=== PATIENT | female | born 1940 | race Two or more races ===

== ENCOUNTER 2023-06-12 14:19 | Outpatient (OUT) | payer MEDICARE, OTHER, SELFPAY ==
--- NOTE | 2023-06-12 14:22 | MM_ITS ---
Patient Name: MAIKEL ESTES MR#: [id number] : 1940 Exam Date: 06/12/2023 Ordering Doctor: DR NAILA MOSES M.D. RADIOLOGY REPORT PROCEDURE: MM TOMOSYNTHESIS SCREENING BI COMPARISON: MG MAMM SCREEN 3D CHANG CAD, 06/06/2022. MG MAMM SCREEN 3D CHANG CAD, 06/04/2021. MG MAMM SCREEN CHANG W CAD, 05/08/2020. MG MAMM CHANG SCRN W CAD DIG, 12/28/2012. INDICATIONS: Screening Calculator Name NCI Breast Cancer Risk Assessment Tool 5 Year Breast Cancer Risk 0.70% Lifetime Breast Cancer Risk 0.90% Personal Breast Cancer No Personal Ovarian Cancer No Treatments None Family Cancers None LOCATION: [facility] BREAST COMPOSITION: Heterogeneously dense,which may obscure small masses. FINDINGS: DIAGNOSTIC CATEGORY 1--NEGATIVE. RIGHT BREAST: No significant suspicious finding. No significant change has occurred. LEFT BREAST: No significant suspicious finding. No significant change has occurred. RECOMMENDATIONS: ROUTINE MAMMOGRAM AND CLINICAL EVALUATION IN 12 MONTHS. PLEASE NOTE: A NORMAL MAMMOGRAM DOES NOT EXCLUDE THE POSSIBILITY OF BREAST CANCER. A CLINICALLY SUSPICIOUS PALPABLE LUMP SHOULD BE BIOPSIED. Dictated by: Ritesh Salinas M.D. on 06/15/2023 at 08:07 Approved by: Ritesh Salinas M.D. on 06/15/2023 at 08:38
== END 2023-06-12 14:20 | disposition home or self-care (01) ==
LOC: MAMMO 14:19
PROVIDERS: PCP Family Medicine; Visit Provider Family Medicine
DX: Z12.31 Encounter for screening mammogram for malignant neoplasm of breast (principal)
CPT/HCPCS: 77063; 77067

== ENCOUNTER 2023-12-25 12:36 | Outpatient (OUT) | payer MEDICARE, OTHER, SELFPAY ==
--- NOTE | 2023-12-25 12:44 | XR_ITS ---
[address] [address] Patient Name: MAIKEL ESTES MRN: [id number] date: 1940 Sex: F Assigned Patient Location: [facility] Current Patient Location: [facility] Accession/Order Number: [id number] Exam Date: 12/25/2023 12:51 Report Date: 12/25/2023 13:12 At the request of: NANCY MONTEIRO Procedure: XR DEXA axial skeleton EXAMINATION: XR DEXA axial skeleton HISTORY: Screening COMPARISON: DEXA bone densitometry 06/29/2017 TECHNIQUE: Dual-energy X-ray absorptiometry (DXA) was performed. FINDINGS: SPINE ANALYSIS: Average bone mineral density is 1.126 g/cm2. T-score (standard deviation relative to young adult mean): -0.5 . +0.3% change since prior study. HIP ANALYSIS: Lowest bone mineral density is within the left femoral neck, 0.843 g/cm2. T-score (standard deviation relative to young adult mean): -1.4 . -0.9% change since prior study. XR/XR DEXA axial skeleton IMPRESSION: World [employer] Classification: Osteopenia - Moderate Fracture Risk FRAX: Electronically authenticated by: PIERRE GREY Date: 12/25/2023 13:12
--- OUTSIDE RECORDS SUMMARY | 2023-12-25 12:48 | XMS_ITS | CCD ---
Author Organization [facility] Care Team Providers Care Social Science Professor Name Role Phone Olga Hayes Primary Care Unavailable Rush Desai Attending Unavailable Giselle, Rush Admitting Unavailable [place], DR STEVEN Scruggs Admitting Unavailable ANTIOCH, DR OH Primary Care Unavailable [place], DR STEVEN Scruggs Attending Unavailable [place], DR STEVEN Scruggs Consulting Unavailable ANTIOCH, DR OH Attending Unavailable ANTIOCH, DR OH Consulting Unavailable ANTIOCH, DR OH Primary Care Unavailable ANTIOCH, DR OH Admitting Unavailable ANTIOCH, DR OH Attending Unavailable ANTIOCH, DR OH Primary Care Unavailable ANTIOCH, DR OH Admitting Unavailable [place], DR STEVEN Scruggs Consulting Unavailable ANTIOCH, DR [place] Consulting Unavailable ANTIOCH, DR OH Primary Care Unavailable [place], DR STEVEN Scruggs Admitting Unavailable [place], DR STEVEN Scruggs Attending Unavailable MAINE, DR STEVEN Scruggs Consulting Unavailable MATILDA, DR RITESH Goldstein Consulting Unavailable Roselyn Weathers Unavailable NAILA MOSES Attending Unavailable NAILA MOSES Attending Unavailable NANCY MONTEIRO Attending Unavailable NAILA MOSES Attending Unavailable NAILA MOSES Attending Unavailable Medications Current Medications Medication Drug Class(es) Dates Sig (Normalized) Sig (Original) doxycycline monohydrate 100 mg oral capsule (1 source) Tetracycline-class Drug Start: 08-09-2022 take 1 capsule by mouth every twelve hours Doxycycline Monohydrate 100 MG 1 capsule Orally every 12 hrs for 7 days Jul, Active lisinopril 40 mg oral tablet (1 source) Angiotensin Converting Enzyme Inhibitor take 1 tablet by mouth every twenty-four hours Lisinopril 40 MG 1 tablet By Mouth Daily for 90 day(s) Active Multi For Her 50+ - (1 source) Multi For Her 50 + - as directed Orally Daily Active mupirocin 0.02 mg/mg topical ointment (1 source) RNA Synthetase Inhibitor Antibacterial Start: 08-09-2022 Mupirocin 2 % 1 application with Qtip to affected area Externally 2 times a day for 7 days Jul, Active Problems Active Problems Problem Classification Problem Date Documented Date Episodic/Chronic Chronic kidney disease (1 source) Chronic kidney disease stage 3; Translations: [Chronic kidney disease, stage 3 (moderate)] Chronic Essential hypertension (4 sources) Essential (primary) hypertension; Translations: [ESSENTIAL PRIMARY HYPERTENSION] Onset: 2 Chronic Hypertension with complications and secondary hypertension (1 source) Hypertensive renal disease; Translations: [Hypertensive chronic kidney disease with stage 1 through stage 4 chronic kidney disease, or unspecified chronic kidney disease] Chronic Other circulatory disease (1 source) Elevated blood-pressure reading, without diagnosis of hypertension Episodic Other diseases of kidney and ureters (1 source) Secondary hyperparathyroidism; Translations: [Secondary hyperparathyroidism of renal origin] Chronic Other screening for suspected conditions (not mental disorders or infectious disease) (4 sources) Encounter for screening mammogram for malignant neoplasm of breast; Translations: [ENC SCR MAMMO MALIG NEOPLASM BREAST] Onset: 2 Episodic Skin and subcutaneous tissue infections (1 source) Cellulitis of other sites Episodic Past or Other Problems Problem Classification Problem Date Documented Da te Episodic/Chronic Varicose veins of lower extremity (4 sources) Varicose veins of bilateral lower extremities with pain; Translations: [VARICOSE VNS CHANG LOW EXTREM W/PAIN] Onset: 09-12-2021 Episodic Results Test Name Value Interpretation Reference Range Facil ity CBC AUTO DIFFon 07-17-2022 BASO # 0.0 103/ul Normal 0.0-0.1 [facility] Comment on above: Performed By: #### C BC #### [facility] [address] [address] [address] Kassie Cheng Basophils/100 WBC (Bld) 0.3 % Normal 0.2-2.0 [facility] Comment on above: Performed By: #### C BC #### [facility] [address] [address] [address] Kassie Cheng EO # 0.0 103/ul Normal 0.0-0.7 [facility] Comment on above: Performed By: #### C BC #### [facility] [address] [address] [address] Kassie Cheng Eosinophils/100 WBC (Bld) 0.7 % Critically low 0.9-7.0 [facility] Comment on above: Performed By: #### C BC #### [facility] [address] [place] [address] Dr. Kassie Cheng Erythrocyte distribution width (RBC) [Ratio] 13.9 % Normal 11.0-15.0 [facility] Comment on above: Performed By: #### C BC #### [facility] [address] [place] [address] Dr. Kassie Cheng Hematocrit (Bld) [Volume fraction] 40.6 % Normal 36.0-48.0 [facility] Comment on above: Performed By: #### C BC #### [facility] [address] [place] [address] Dr. Kassie Cheng Hemoglobin (Bld) [Mass/Vol] 13.2 g/dL Normal 12.0-16.0 [facility] Comment on above: Performed By: #### C BC #### [facility] [address] [place] [address] Dr. Kassie Cheng IG # 0.01 10e3/ul Normal 0.00-0.03 [facility] Comment on above: Performed By: #### C BC #### [facility] [address] [place] [address] Dr. Kassie Cheng IG % 0.2 % Normal 0.0-0.5 [facility] Comment on above: Performed By: #### C BC #### [facility] [address] [place] [address] Dr. Kassie Cheng LYMPH # 1.2 103/ul Normal 1.2-3.8 [facility] Comment on above: Performed By: #### C BC #### [facility] [address] [place] [address] Dr. Kassie Cheng Lymphocytes/100 WBC (Bld) 20.0 % Critically low 20.5-60.0 [facility] Comment on above: Performed By: #### C BC #### [facility] [address] [place] [address] Dr. Kassie Cheng MANUAL DIFF REQ NO Normal [facility] Comment on above: Performed By: #### C BC #### [facility] [address] [place] [address] Dr. Kassie Cheng MCH (RBC) [Entitic mass] 27.7 pg Normal 26.7-34.0 [facility] Comment on above: Performed By: #### C BC #### [facility] [address] [place] [address] Dr. Kassie Cheng MCHC (RBC) [Mass/Vol] 32.5 g/dL Normal 29.9-35.2 [facility] Comment on above: Performed By: #### C BC #### [facility] [address] [place] [address] Dr. Kassie Cheng MCV (RBC) [Entitic vol] 85.1 fL Normal 81.0-99.0 [facility] Comment on above: Performed By: #### C BC #### [facility] [address] [place] [address] Dr. Kassie Cheng MONO # 0.3 103/ul Normal 0.3-0.8 [facility] Comment on above: Performed By: #### C BC #### [facility] [address] [place] [address] Dr. Kassie Cheng Monocytes/100 WBC (Bld) 5.2 % Normal 1.7-12.0 [facility] Comment on above: Performed By: #### C BC #### [facility] [address] [place] [address] Dr. Kassie Cheng NEUT # 4.4 103/ul Normal 1.4-6.5 [facility] Comment on above: Performed By: #### C BC #### [facility] [address] [place] [address] Dr. Kassie Cheng Neutrophils/100 WBC (Bld) 73.6 % Normal 43.0-75.0 [facility] Comment on above: Performed By: #### C BC #### [facility] [address] [place] [address] Dr. Kassie Cheng Platelet mean volume (Bld) [Entitic vol] 10.4 fL Normal 9.5-13.5 [facility] Comment on above: Performed By: #### C BC #### [facility] [address] [address] [address] Kassie Cheng PLT 212 103/ul Normal 150-450 [facility] Comment on above: Performed By: #### C BC #### [facility] [address] [place] [address] Dr. Kassie Cheng RBC 4.77 106/ul Normal 4.20-5.40 [facility] Comment on above: Performed By: #### C BC #### [facility] [address] [place] [address] Dr. Kassie Cheng WBC 5.9 103/ul Normal 4.0-11.0 [facility] Comment on above: Performed By: #### C BC #### [facility] [address] [place] [address] Dr. Kassie Cheng PROF 14(COMP METB)on 022 Albumin [Mass/Vol] 4.0 g/dL Normal 3.4-5.0 [facility] Comment on above: Performed By: #### C MP, T4, TSH #### [facility] [address] [place] [address] Dr. Kassie Cheng Albumin/Globulin [Mass ratio] 1.0 {ratio} Normal [facility] Comment on above: Performed By: #### C MP, T4, TSH #### [facility] [address] [place] [address] Dr. Kassie Cheng ALP [Catalytic activity/Vol] 75 U/L Normal 46-116 [facility] Comment on above: Performed By: #### C MP, T4, TSH #### [facility] [address] [place] [address] Dr. Kassie Cheng ALT [Catalytic activity/Vol] 22 U/L Normal 14-59 [facility] Comment on above: Performed By: #### C MP, T4, TSH #### [facility] [address] [place] [address] Dr. Kassie Cheng Anion gap [Moles/Vol] 14.3 mmol/L Normal [facility] Comment on above: Performed By: #### C MP, T4, TSH #### [facility] [address] [address] [address] Kassie Cheng AST [Catalytic activity/Vol] 21 U/L Normal 15-37 [facility] Comment on above: Performed By: #### C MP, T4, TSH #### [facility] [address] [address] [address] Kassie Cheng Bilirubin [Mass/Vol] 0.5 mg/dL Normal 0.2-1.0 [facility] Comment on above: Performed By: #### C MP, T4, TSH #### [facility] [address] [address] [address] Kassie Cheng Calcium [Mass/Vol] 9.5 mg/dL Normal 8.5-10.1 [facility] Comment on above: Performed By: #### C MP, T4, TSH #### [facility] [address] [address] [address] Kassie Cheng Chloride [Moles/Vol] 100 mmol/L Normal 98-107 [facility] Comment on above: Performed By: #### C MP, T4, TSH #### [facility] [address] [address] [address] Kassie Cheng CO2 [Moles/Vol] 29.5 mmol/L Normal 21.0-32.0 [facility] Comment on above: Performed By: #### C MP, T4, TSH #### [facility] [address] [address] [address] Kassie Cheng Creatinine [Mass/Vol] 0.99 mg/dL Normal 0.55-1.02 [facility] Comment on above: Performed By: #### C MP, T4, TSH #### [facility] [address] [address] [address] Kassie Cheng EGFR-AF MOLDOVAN >60 Normal >=60 [facility] Comment on above: Performed By: #### C MP, T4, TSH #### [facility] [address] [address] [address] Kassie Cheng EGFR-NON AF MOLDOVAN 54 mL/min/1.73m2 Critically low >=60 [facility] Comment on above: Performed By: #### C MP, T4, TSH #### [facility] [address] [address] [address] Kassie Cheng Globulin (S) [Mass/Vol] 3.9 g/dL Normal [facility] Comment on above: Performed By: #### C MP, T4, TSH #### [facility] [address] [address] [address] Kassie Cheng Glucose [Mass/Vol] 101 mg/dL Normal 74-106 [facility] Comment on above: Performed By: #### C MP, T4, TSH #### [facility] [address] [place] [address] Dr. Kassie Cheng Potassium [Moles/Vol] 3.8 mmol/L Normal 3.5-5.1 [facility] Comment on above: Performed By: #### C MP, T4, TSH #### [facility] [address] [place] [address] Dr. Kassie Cheng Protein [Mass/Vol] 7.9 g/dL Normal 6.4-8.2 [facility] Comment on above: Performed By: #### C MP, T4, TSH #### [facility] [address] [place] [address] Dr. Kassie Cheng Sodium [Moles/Vol] 140 mmol/L Normal 136-145 [facility] Comment on above: Performed By: #### C MP, T4, TSH #### [facility] [address] [place] [address] Dr. Kassie Cheng Urea nitrogen [Mass/Vol] 17.0 mg/dL Normal 7.0-18.0 [facility] Comment on above: Performed By: #### C MP, T4, TSH #### [facility] [address] [place] [address] Dr. Kassie Cheng Urea nitrogen/Creatinine [Mass ratio] 17.2 mg/mg Normal [facility] Comment on above: Performed By: #### C MP, T4, TSH #### [facility] [address] [place] [address] Dr. Kassie Cheng T4on 07-17-2022 T4 [Mass/Vol] 9.40 ug/dL Normal 4.80-13.90 [facility] Comment on above: Performed By: #### C MP, T4, TSH #### [facility] [address], [place] [address] Dr. Kassie Cheng TSHon 07-17-2022 TSH 1.588 uIU/mL Normal 0.358-3.740 [facility] Comment on above: Performed By: #### C MP, T4, TSH #### [facility] [address], [place] [address] Dr. Kassie Cheng MG MAMM SCREEN 3D CHANG CADon 06-06-2022 MG MAMM SCREEN 3D CHANG CAD Patient: MAIKEL ESTES Exam Date: 06/06/2022 : 1940 Gender:F Ordering : DR ADRIANO CORONA D.O. Admission #: [id number] Family : Order #: [id number] CLICK HERE TO VIEW EXAM RADIOLOGY REPORT PROCEDURE: MAMMOGRAM SCREENING 3D BILATERAL CAD COMPARISON: MG MAMM SCREEN 3D CHANG CAD, 06/04/2021. MG MAMM SCREEN CHANG W CAD, 05/08/2020. INDICATIONS: Screening mammography Calculator Name NCI Breast Cancer Risk Assessment Tool 5 Year Breast Cancer Risk 0.70% Lifetime Breast Cancer Risk 1.00% Personal Breast Cancer No Personal Ovarian Cancer No Treatments None Family Cancers None LOCATION: [facility] BREAST COMPOSITION: Heterogeneously dense,which may obscure small masses. FINDINGS: DIAGNOSTIC CATEGORY 1--NEGATIVE. NO CHANGE FROM COMPARISON ASSESSMENT. Scattered benign-appearing calcifications are present. Scattered benign-appearing lymph nodes are present. RIGHT BREAST: No significant suspicious finding. LEFT BREAST: No significant suspicious finding. RECOMMENDATIONS: ROUTINE MAMMOGRAM AND CLINICAL EVALUATION IN 12 MONTHS. PLEASE NOTE: A NORMAL MAMMOGRAM DOES NOT EXCLUDE THE POSSIBILITY OF BREAST CANCER. A CLINICALLY SUSPICIOUS PALPABLE LUMP SHOULD BE BIOPSIED. Dictated by: Steven Grove MD on 06/06/2022 at 13:55 Approved by: Steven Grove MD on 06/06/2022 at 13:56 Normal [facility] VC COMP CONSULTATIONon 09-12 VC COMP CONSULTATION Patient: MAIKEL ESTES Exam Date: 09/12/2021 : 1940 Gender:F Ordering : DR STEVEN GROVE M.D. Admission #: [id number] Family : Order #: [id number] CLICK HERE TO VIEW EXAM RADIOLOGY REPORT PROCEDURE: VC VEIN CENTER CONSULTATION VEIN CENTER - OFFICE VISIT INITIAL COMPARISON: None. PROGRESS NOTES: [age] year old female who presents with a several months history of pain lateral and just cephalad to right knee. Pain is described as throbbing and started after falling and striking knee on edge of cement steps. The patient denies any signs and symptoms to suggest arterial ischemia. The patient describes a family history heart disease, diabetes, varicose veins. The patient has drinking and smoking history of : None. Patient has a past medical history significant for prior ablation/treatment of varicose veins. The patient denies a history of deep venous thrombus or pulmonary embolus. See separate history and physical for medication list. Prior treatment for varicose or spider veins. Current use of compression stockings. After review of nurse notes, history and physical exam I discussed at length the pathophysiology of venous hypertension and possible treatments, therapies and strategies available. We discussed at length the importance of elevating the lower extremities above the level of the heart, increased physical activity and compression stocking use. Ultrasound venous reflux study performed today was discussed at length with the patient. The report demonstrates scattered areas of mild-moderate reflux without abnormal vein dilation.. PHYSICAL EXAM: The right leg demonstrates a few small varicosities, no significant spider veins, no ulceration, no edema, no skin discoloration. The left leg demonstrates a few small varicosities, no spider veins, no ulceration, no edema, no skin discoloration. Both thighs, legs and feet were symmetrically warm to the touch. Good posterior tibial and dorsalis pedis pulses were present bilaterally. IMPRESSION: 1. No significant or treatable venous insufficiency 2. CEAP: C0, En, An, Pn PLAN: 1. Continued use of compression stockings 2. Follow-up with primary care provider possible nerve injury or bone bruising. Nurse notes, history and physical were reviewed and confirmed, see attached forms. The nurse was present throughout the physical exam and consultation Dictated by: Ritesh Salinas M.D. on 09/12/2021 at 10:58 Approved by: Ritesh Salinas M.D. on 09/12/2021 at 11:05 Normal [facility] [place] [facility] VC VENOUS REFLUX CHANG LMTon 0 09-12-2021 VC VENOUS REFLUX CHANG LMT Patient: MAIKEL ESTES Exam Date: 09/12/2021 : 1940 Gender:F Ordering : DR STEVEN GROVE M.D. Admission #: [id number] Family : Order #: [id number] CLICK HERE TO VIEW EXAM RADIOLOGY REPORT PROCEDURE: VEIN CENTER ULTRASOUND VENOUS REFLUX BILATERAL LIMTED COMPARISON: None. INDICATIONS: Pain co-occurrent and due to varicose veins of bilateral legs I83.813 TECHNIQUE: Duplex imaging of the lower extremity to assess the deep and superficial venous system for the presence of deep or superficial venous incompetence and to document the location and severity of disease. The study includes evaluation of the great saphenous vein (GSV), anterior accessory saphenous vein (AASV) and small saphenous vein (SSV). Patient scanned in reverse Trendelenburg and standing. FINDINGS: RIGHT LOWER EXTREMITY: Saphenofemoral Junction Reflux: Yes 8.6mm 6.4 sec GSV: Diam (mm) Reflux/ Time (sec) Proximal Thigh 4.5 Yes 3.3 Mid Thigh Distal Thigh 3.8 Yes 1.7 Prox Calf 1.9 Yes 1.3 Mid Calf 3.1 No Saphenopopliteal Junction Reflux: 4.0mm No SSV: Proximal Calf 2.5 No Mid Calf 1.5 No AASV: Proximal Thigh 4.0 Yes 0.6 Mid Thigh 2.0 No Distal Thigh Thrombi: None. Compressibility: Normal. Flow: Normal. Preforator: None. Tech Note: Incompetent varicose vein medial knee off of distal GSV measures 2.3 mm with 4.4 seconds of reflux. Lateral knee varicose vein measures 2.2 mm with 0.3 secoonds of reflux. LEFT LOWER EXTREMITY: Saphenofemoral Junction Reflux: Yes 7.6 mm 1.0 sec GSV: Diam (mm) Reflux/Time (sec) Proximal Thigh 3.7 Yes 0.2 Mid Thigh 2.6 Yes 0.2 Distal Thigh 1.5 No Prox Calf 2.3 No Mid Calf 2.9 No Saphenopopliteal Junction Relux: 2.4 mm No SSV: Proximal Calf 2.7 No Mid Calf 1.7 No AASV: Not present Proximal Thigh Mid Thigh Distal Thigh Thrombi: None. Compressibility: Normal. Flow: Normal. Proposition Player: Proposition Player distal calf measures 1.9 mm with 0.4 seconds of reflux. Tech Note: Fluid collection medial popliteal fossa measures 4.2 x 2.2 x 1.3 cm. Mild deep venous reflux in iliac vein and femoral vein. Dilated epigastric vein measures 4.3 mm with 1.8 seconds of reflux. Incompetent varicose vein anterior mid lower leg measures 1.4 mm with 1.6 seconds reflux. CONCLUSION: 1. Scattered areas of mild-moderate reflux without significant vessel dilation bilaterally. 2. Left Gamboa cyst. Dictated by: Ritesh Salinas M.D. on 09/12/2021 at 09:20 Approved by: Ritesh Salinas M.D. on 09/12/2021 at 10:57 Normal [facility] Dipstick and Microscopicon 0 09-28-2018 Appearance Nom (U) Clear Normal Clear [facility] Comment on above: Order Comment: DR. Stephan MORRISON ADD MICROSCOPIC TO UA Name Collection Type: Clean-Voided Midstream Performed By: #### P ROCRERAT, PTH, [id number], URIC, MG, RENAL, CBCNO, ADDONUAPLUS #### [facility] [address] Bacteria LM.HPF #/area (Urine sed) None Seen Normal None Seen [facility] Comment on above: Order Comment: DR. Stephan MORRISON ADD MICROSCOPIC TO UA Name Collection Type: Clean-Voided Midstream Performed By: #### P ROCRERAT, PTH, [id number], URIC, MG, RENAL, CBCNO, ADDONUAPLUS #### [facility] [address] [id number] [place] Bilirubin,Urine Negative Normal Negative [facility] Comment on above: Order Comment: DR. Stephan MORRISON ADD MICROSCOPIC TO UA Name Collection Type: Clean-Voided Midstream Performed By: #### P ROCRERAT, PTH, [id number], URIC, MG, RENAL, CBCNO, ADDONUAPLUS #### [facility] [address] [id number] [place] Color Nom (U) Yellow Normal Yellow [facility] Comment on above: Order Comment: DR. Stephan MORRISON ADD MICROSCOPIC TO UA Name Collection Type: Clean-Voided Midstream Performed By: #### P ROCRERAT, PTH, [id number], URIC, MG, RENAL, CBCNO, ADDONUAPLUS #### [facility] [address] [place] [address] Glucose Ql (U) Normal Normal Normal [facility] Comment on above: Order Comment: DR. Stephan MORRISON ADD MICROSCOPIC TO UA Name Collection Type: Clean-Voided Midstream Performed By: #### P ROCRERAT, PTH, [id number], URIC, MG, RENAL, CBCNO, ADDONUAPLUS #### [address] Hyaline Casts,Urine 0-8 Normal 0-[address] [facility] Comment on above: Order Comment: DR. Stephan MORRISON ADD MICROSCOPIC TO UA Name Collection Type: Clean-Voided Midstream Result Comment: PERF ORMED BY: [place] [address] PATHOLOGIST MOLECULAR BIOLOGY PROFESSOR ENRRIQUE HARVEY M.D. Performed By: #### P ROCRERAT, PTH, [id number], URIC, MG, RENAL, CBCNO, ADDONUAPLUS #### [address] Ketones Ql (U) Negative Normal Negative [facility] Comment on above: Order Comment: DR. Stephan MORRISON ADD MICROSCOPIC TO UA Name Collection Type: Clean-Voided Midstream Performed By: #### P ROCRERAT, PTH, [id number], URIC, MG, RENAL, CBCNO, ADDONUAPLUS #### [facility] [address] [place] [address] Leukocyte esterase Test strip Ql (U) 2+ High Negative [facility] Comment on above: Order Comment: DR. Stephan MORRISON ADD MICROSCOPIC TO UA Name Collection Type: Clean-Voided Midstream Performed By: #### P ROCRERAT, PTH, [id number], URIC, MG, RENAL, CBCNO, ADDONUAPLUS #### [address] Nitrite,Urine Negative Normal Negative [facility] Comment on above: Order Comment: DR. Stephan MORRISON ADD MICROSCOPIC TO UA Name Collection Type: Clean-Voided Midstream Performed By: #### P ROCRERAT, PTH, [id number], URIC, MG, RENAL, CBCNO, ADDONUAPLUS #### [address] Occult Blood,Urine Negative Normal Negative [facility] Comment on above: Order Comment: DR. Stephan MORRISON ADD MICROSCOPIC TO UA Name Collection Type: Clean-Voided Midstream Performed By: #### P ROCRERAT, PTH, [id number], URIC, MG, RENAL, CBCNO, ADDONUAPLUS #### [address] pH (U) 5.5 [pH] Normal 5.0-9.0 [facility] Comment on above: Order Comment: DR. Stephan MORRISON ADD MICROSCOPIC TO UA Name Collection Type: Clean-Voided Midstream Performed By: #### P ROCRERAT, PTH, [id number], URIC, MG, RENAL, CBCNO, ADDONUAPLUS #### [address] Protein mass conc (U) Negative Normal Negative [facility] Comment on above: Order Comment: DR. Stephan MORRISON ADD MICROSCOPIC TO UA Name Collection Type: Clean-Voided Midstream Performed By: #### P ROCRERAT, PTH, [id number], URIC, MG, RENAL, CBCNO, ADDONUAPLUS #### [address] RBC LM.HPF #/area (Urine sed) 1-2 Normal 0-4 [facility] Comment on above: Order Comment: DR. Stephan MORRISON ADD MICROSCOPIC TO UA Name Collection Type: Clean-Voided Midstream Performed By: #### P ROCRERAT, PTH, [id number], URIC, MG, RENAL, CBCNO, ADDONUAPLUS #### [address] Specificy [place],Urine 1.014 Normal 1.001-1.030 [facility] Comment on above: Order Comment: DR. Stephan MORRISON ADD MICROSCOPIC TO UA Name Collection Type: Clean-Voided Midstream Performed By: #### P ROCRERAT, PTH, [id number], URIC, MG, RENAL, CBCNO, ADDONUAPLUS #### [address] Squamous Epithelial Cell,Urine 1-2 Normal 0-2 [facility] Comment on above: Order Comment: DR. Stephan MORRISON ADD MICROSCOPIC TO UA Name Collection Type: Clean-Voided Midstream Performed By: #### P ROCRERAT, PTH, [id number], URIC, MG, RENAL, CBCNO, ADDONUAPLUS #### [address] Urobilinogen,Urine Normal Normal Normal [facility] Comment on above: Order Comment: DR. Stephan MORRISON ADD MICROSCOPIC TO UA Name Collection Type: Clean-Voided Midstream Performed By: #### P ROCRERAT, PTH, [id number], URIC, MG, RENAL, CBCNO, ADDONUAPLUS #### [address] WBC LM.HPF #/area (Urine sed) 1-2 Normal 0-4 [facility] Comment on above: Order Comment: DR. Stephan MORRISON ADD MICROSCOPIC TO UA Name Collection Type: Clean-Voided Midstream Performed By: #### P ROCRERAT, PTH, [id number], URIC, MG, RENAL, CBCNO, ADDONUAPLUS #### [address] Hemogram CBC Without Diffon 09-28-2018 Erythrocyte distribution width Ratio (RBC) 14.0 % Normal 11.9-15.3 [facility] Comment on above: Order Comment: DR. Stephan MORRISON ADD MICROSCOPIC TO UA Performed By: #### P ROCRERAT, PTH, [id number], URIC, MG, RENAL, CBCNO, ADDONUAPLUS #### [address] Hematocrit Volume Fraction (Bld) 40.8 % Normal 34.0-46.4 [facility] Comment on above: Order Comment: DR. Stephan MORRISON ADD MICROSCOPIC TO UA Performed By: #### P ROCRERAT, PTH, [id number], URIC, MG, RENAL, CBCNO, ADDONUAPLUS #### [address] Hemoglobin mass conc (Bld) 13.5 g/dL Normal 11.8-15.4 [facility] Comment on above: Order Comment: DR. Stephan MORRISON ADD MICROSCOPIC TO UA Performed By: #### P ROCRERAT, PTH, [id number], URIC, MG, RENAL, CBCNO, ADDONUAPLUS #### [address] MCH Entitic mass (RBC) 33.2 g/dL Normal 32.0-35.0 [facility] Comment on above: Order Comment: DR. Stephan MORRISON ADD MICROSCOPIC TO UA Performed By: #### P ROCRERAT, PTH, [id number], URIC, MG, RENAL, CBCNO, ADDONUAPLUS #### [address] MCH Entitic mass (RBC) 28.0 pg Normal 24.7-34.3 [facility] Comment on above: Order Comment: DR. Stephan MORRISON ADD MICROSCOPIC TO UA Performed By: #### P ROCRERAT, PTH, [id number], URIC, MG, RENAL, CBCNO, ADDONUAPLUS #### [address] MCV Entitic volume (RBC) 84.2 fL Normal 80-100 [facility] Comment on above: Order Comment: DR. Stephan MORRISON ADD MICROSCOPIC TO UA Performed By: #### P ROCRERAT, PTH, [id number], URIC, MG, RENAL, CBCNO, ADDONUAPLUS #### [address] Platelet mean volume Entitic volume (Bld) 9.6 fL Normal 6.3-10.7 [facility] Comment on above: Order Comment: DR. Stephan MORRISON ADD MICROSCOPIC TO UA Result Comment: PERF ORMED BY: [place] [address] PATHOLOGIST MOLECULAR BIOLOGY PROFESSOR ENRRIQUE HARVEY M.D. Performed By: #### P ROCRERAT, PTH, [id number], URIC, MG, RENAL, CBCNO, ADDONUAPLUS #### [facility] [address] [place] [address] Platelets #/vol (Bld) 224 10*3/uL Normal 150-450 [facility] Comment on above: Order Comment: DR. Stephan MORRISON ADD MICROSCOPIC TO UA Performed By: #### P ROCRERAT, PTH, [id number], URIC, MG, RENAL, CBCNO, ADDONUAPLUS #### [address] RBC #/vol (Bld) 4.84 10*6/uL Normal 3.60-5.00 [facility] Comment on above: Order Comment: DR. Stephan MORRISON ADD MICROSCOPIC TO UA Performed By: #### P ROCRERAT, PTH, [id number], URIC, MG, RENAL, CBCNO, ADDONUAPLUS #### [facility] [address] [place] [address] WBC #/vol (Bld) 4.3 10*3/uL Normal 3.8-11.6 [facility] Comment on above: Order Comment: DR. Stephan MORRISON ADD MICROSCOPIC TO UA Performed By: #### P ROCRERAT, PTH, [id number], URIC, MG, RENAL, CBCNO, ADDONUAPLUS #### [address] Magnesiumon 09-28-2018 Magnesium mass conc 1.8 mg/dL Normal 1.6-2.[address] [facility] Comment on above: Order Comment: DR. Stephan MORRISON ADD MICROSCOPIC TO UA Performed By: #### P ROCRERAT, PTH, [id number], URIC, MG, RENAL, CBCNO, ADDONUAPLUS #### [address] [place] [address] [place] Parathyroid Hormone [place] 09-28-2018 Parathyroid Hormone Intact 44.2 pg/mL Normal 12-88 [facility] Comment on above: Order Comment: DR. Stephan MORRISON ADD MICROSCOPIC TO UA Result Comment: PERF ORMED BY: [place] [address] PATHOLOGIST MOLECULAR BIOLOGY PROFESSOR ENRRIQUE HARVEY M.D. Performed By: #### P ROCRERAT, PTH, [id number], URIC, MG, RENAL, CBCNO, ADDONUAPLUS #### [address] Protein Creat Ratio Ur Rando mon 09-28-2018 Creatinine, Urine (Random) 159.8 mg/dL Normal [facility] Comment on above: Order Comment: DR. Stephan MORRISON ADD MICROSCOPIC TO UA Result Comment: No r eference range established Performed By: #### P ROCRERAT, PTH, [id number], URIC, MG, RENAL, CBCNO, ADDONUAPLUS #### [address] Protein mass conc (U) mg/dL Normal 0-9 [facility] Comment on above: Order Comment: DR. Stephan MORRISON ADD MICROSCOPIC TO UA Performed By: #### P ROCRERAT, PTH, [id number], URIC, MG, RENAL, CBCNO, ADDONUAPLUS #### [address] Urine Protein/Creatinine Ratio Test not performed Normal 0-200 [facility] Comment on above: Order Comment: DR. Stephan MORRISON ADD MICROSCOPIC TO UA Result Comment: PERF ORMED BY: [place] [address] PATHOLOGIST MOLECULAR BIOLOGY PROFESSOR ENRRIQUE HARVEY M.D. Performed By: #### P ROCRERAT, PTH, [id number], URIC, MG, RENAL, CBCNO, ADDONUAPLUS #### [address] Renal Function Panelon 09-28 Albumin mass conc 3.8 g/dL Normal 3.2-5.5 [facility] Comment on above: Order Comment: DR. Stephan MORRISON ADD MICROSCOPIC TO UA Performed By: #### P ROCRERAT, PTH, [id number], URIC, MG, RENAL, CBCNO, ADDONUAPLUS #### [facility] [address] Calcium mass conc 9.3 mg/dL Normal 8.2-10.2 [facility] Comment on above: Order Comment: DR. Stephan MORRISON ADD MICROSCOPIC TO UA Performed By: #### P ROCRERAT, PTH, [id number], URIC, MG, RENAL, CBCNO, ADDONUAPLUS #### [facility] [address] Chloride molar conc 104 mmol/L Normal 95-[address] [facility] Comment on above: Order Comment: DR. Stephan MORRISON ADD MICROSCOPIC TO UA Performed By: #### P ROCRERAT, PTH, [id number], URIC, MG, RENAL, CBCNO, ADDONUAPLUS #### [facility] [address] CO2 molar conc 26.6 mmol/L Normal 22.0-30.0 [facility] Comment on above: Order Comment: DR. Stephan MORRISON ADD MICROSCOPIC TO UA Performed By: #### P ROCRERAT, PTH, [id number], URIC, MG, RENAL, CBCNO, ADDONUAPLUS #### [facility] [address] Creatinine mass conc 0.95 mg/dL Normal 0.44-1.03 [facility] Comment on above: Order Comment: DR. Stephan MORRISON ADD MICROSCOPIC TO UA Performed By: #### P ROCRERAT, PTH, [id number], URIC, MG, RENAL, CBCNO, ADDONUAPLUS #### [facility] [address] Estimated GFR ( Zainab > 60 Normal [facility] Comment on above: Order Comment: DR. Stephan MORRISON ADD MICROSCOPIC TO UA Result Comment: GFR estimated reference range: According to KDOQI guidelines, <60 ml/min/1.73m2 is sufficient to diagnose a patient with chronic kidney disease. Performed By: #### P ROCRERAT, PTH, [id number], URIC, MG, RENAL, CBCNO, ADDONUAPLUS #### [facility] [address] Estimated GFR (Non- Am 57 Normal [facility] Comment on above: Order Comment: DR. Stephan MORRISON ADD MICROSCOPIC TO UA Performed By: #### P ROCRERAT, PTH, [id number], URIC, MG, RENAL, CBCNO, ADDONUAPLUS #### [facility] [address] Glucose mass conc 95 mg/dL Normal 70-100 [facility] Comment on above: Order Comment: DR. Stephan MORRISON ADD MICROSCOPIC TO UA Result Comment: [facility] Glucose Reference Range is dependent on time and content of last meal. Glucose of more than 200 mg/dL in a nonstressed, ambulatory subject supports the diagnosis of Diabetes Mellitus. ADA recommended reference range Performed By: #### P ROCRERAT, PTH, [id number], URIC, MG, RENAL, CBCNO, ADDONUAPLUS #### [facility] [address] Phosphate mass conc 3.9 mg/dL Normal 2.5-4.[address] [facility] Comment on above: Order Comment: DR. Stephan MORRISON ADD MICROSCOPIC TO UA Performed By: #### P ROCRERAT, PTH, [id number], URIC, MG, RENAL, CBCNO, ADDONUAPLUS #### [facility] [address] Potassium molar conc 3.5 mmol/L Normal 3.5-5.1 [facility] Comment on above: Order Comment: DR. Stephan MORRISON ADD MICROSCOPIC TO UA Performed By: #### P ROCRERAT, PTH, [id number], URIC, MG, RENAL, CBCNO, ADDONUAPLUS #### [facility] [address] Sodium molar conc 137 mmol/L Normal 136-146 [facility] Comment on above: Order Comment: DR. Stephan MORRISON ADD MICROSCOPIC TO UA Performed By: #### P ROCRERAT, PTH, [id number], URIC, MG, RENAL, CBCNO, ADDONUAPLUS #### [facility] [address] Urea nitrogen mass conc 14 mg/dL Normal 9-23 [facility] Comment on above: Order Comment: DR. Stephan MORRISON ADD MICROSCOPIC TO UA Performed By: #### P ROCRERAT, PTH, [id number], URIC, MG, RENAL, CBCNO, ADDONUAPLUS #### [facility] [address] [place] [id number] [facility] [[email or web address]] Uric Acidon 09-28-2018 Urate mass conc 6.0 mg/dL Normal 2.6-7.2 [facility] Comment on above: Order Comment: DR. Stephan MORRISON ADD MICROSCOPIC TO UA Performed By: #### P ROCRERAT, PTH, [id number], URIC, MG, RENAL, CBCNO, ADDONUAPLUS #### [facility] [address] [place] [address] Vitamin D 25 Hydroxy Totalon 09-28-2018 Vitamin D 25 Hydroxy Total 30.1 ng/mL Normal 30-100 [facility] Comment on above: Order Comment: DR. Stephan MORRISON ADD MICROSCOPIC TO UA Result Comment: SHILPA MIN D STATUS 25(OH)VITAMIN D RANGE (ng/mL) Deficient <20 Insufficient 20 to <30 Sufficient 30 to 100 Reference: Jaimie MF,Jurgen NC, Lamonte BAPTISTE, et al. Evaluation,treatment, and prevention of vitamin D deficiency; an Endocrine Society clinical practice guideline. JCEM. 2010; 96(7):1911-30. Performed By: #### P ROCRERAT, PTH, [id number], URIC, MG, RENAL, CBCNO, ADDONUAPLUS #### [facility] [address] Vital Signs Date Time Vital Sign Value Performing Clinician Facility 08-09-2022 14:00-0500 Body height 149.86 cm Roselyn Weathers Other [facility] Other 08-09-2022 14:00-0500 Body mass index (BMI) [Ratio] 24.84 kg/m2 Roselyn Weathers Other [facility] Other 08-09-2022 14:00-0500 Body temperature 98.9 [degF] Roselyn Weathers Other [facility] Other 08-09-2022 14:00-0500 Body weight 55.79 kg Roselyn Weathers Other [facility] Other 08-09-2022 14:00-0500 Diastolic blood pressure 93 mm[Hg] Roselyn Weathers Other [facility] Other 08-09-2022 14:00-0500 Respiratory rate 18 /min Roselyn Weathers Other [facility] Other 08-09-2022 14:00-0500 SaO2% (BldA) [Mass fraction] 98 % Roselyn Weathers Other [facility] Other 08-09-2022 14:00-0500 Systolic blood pressure 191 mm[Hg] Roselyn Weathers Other [facility] Other Encounters Encounter Date Encounter Type Care Provider Facility Start: 12-14-2023 End: 12-14-2023 ambulatory RUGEN M JOSUÉ Not Available Start: 11-30-2023 End: 11-30-2023 ambulatory RUGEN M JOSUÉ Not Available Start: 11-12-2023 End: 11-12-2023 ambulatory RUGEN M JOSUÉ Not Available Start: 08-03-2023 End: 08-03-2023 ambulatory RUGEN M JOSUÉ Not Available Start: 07-16-2023 End: 07-16-2023 ambulatory NANCY MONTEIRO Not Available Start: 08-09-2022 End: 08-09-2022 ambulatory Roselyn Sarahy Other [place] [facility] Other Start: 08-09-2022 Office outpatient ne w 30 minutes Roselyn Sarahy [facility] Start: 07-17-2022 End: 07-18-[address] ADRIANO CORONA Facility:[facility] Start: 06-06-2022 End: 06-07-[address] ADRIANO CORONA Facility:[facility] Start: 09-12-2021 End: 09-13-[address] ADRIANO CORONA Facility:[facility] Start: 09-05-2021 End: 09-06-[address] STEVEN GROVE Facility:[facility] Start: 09-28-2018 End: 09-28-2018 Patient encounter procedure Olga Hayes Facility:[facility] Payers Date Payer Category Payer Self-pay 2018 Unknown [id number] 1959 Medicare [id number] 1959 Unknown [id number] 1940 Unknown [id number] 2.16.84 [id number] 1940 Unknown [id number] 2.16.84 [id number] 1940 Unknown [id number] 2.16.84 [id number] 1940 Unknown [id number] 2.16.84 [id number] 1940 Unknown [id number] 2.16.84 [id number] 1940 Unknown [id number] 2.16.84 [id number] 1940 Unknown [id number] 2.16.84 [id number] 1940 Unknown [id number] 2.16.84 [id number] 1940 Unknown [id number] 2.16.840 .[id number] Unknown [id number] 2.16.840 .[id number] Social History Date Type Detail Facility Sex Assigned At [facility] Other Evaluation note 08-09-2022 Note Date & Type Note Facility 08-09-2022 Evaluation note Encounter Date Diagnosis Assessment Notes Jul, Cellulitis of other specified site (ICD-10 - L03.818) Use medications as directed. CMay use gently cleanser to area between daily application as instructed. Follow up with primary care provider if no improvement of symptoms or if symptoms worsen. Jul, Elevated blood pressure reading (ICD-10 - R03.0) Elevated blood pressure reading with patient and recommend to check blood pressure and report to primary care provider. Patient may have kidney issues involved, this is not clear. [facility] Other History general Narrative - Reported Note Date & Type Note Facility History general Narrative - Reported Type Medical History Secondary hypertension Surgical History appendectomy Hospitalization History see above Hospitalization History child births x 4 [facility] Other Summary Purpose Family History No Family History Records FoundNo Family History Records FoundNo Family History Records Found Advance Directives No Advanced Directives Records FoundNo Advanced Directives Records FoundNo Advanced Directives Records Found Additional Source Comments INFORMATION SOURCE (unrecogn ized section and content) DATE CREATED AUTHOR 09/30/2018 [facility] DATE CREATED AUTHOR AUTHOR'S ORGANIZ ATION 07/24/2022 [facility] DATE CREATED AUTHOR AUTHOR'S ORGANIZ ATION 12/16/2023 [facility] EPIC REASON FOR VISIT (unrecogniz ed section and content) RASH UNDER BREAST POSS SINGL ES FOR RECORDS PERTAINING TO PATIENTS WHO ARE OR HAVE BEEN ENROLLED IN A CHEMICAL DEPENDENCY/SUBSTANCEABUSE PROGRAM, SOME INFORMATION MAY BE OMITTED. This clinical summary was aggregated from multiple sources. Caution should be exercised in using it in the provision of clinical care. This summary normalizes information from multiple sources, and as a consequence, information in this document may materially change the coding, format and clinical context of patient data. In addition, data may be omitted in some cases. CLINICAL DECISIONS SHOULD BE BASED ON THE PRIMARY CLINICAL RECORDS. [facility] provides no warranty or guarantee of the accuracy or completeness of information in this document.
== END 2023-12-25 12:37 | disposition home or self-care (01) ==
PROVIDERS: PCP Family Medicine; Visit Provider Nurse Practitioner Family
DX: E28.39 Other primary ovarian failure (principal); M85.80 Other specified disorders of bone density and structure, unspecified site
CPT/HCPCS: 77080

== ENCOUNTER 2024-05-31 14:55 | Outpatient (OUT) | payer MEDICARE, OTHER, SELFPAY | END 2024-05-31 14:56 | disposition home or self-care (01) | LOC: PST 14:55 | PROVIDERS: PCP Family Medicine; Visit Provider Ophthalmology | DX: Z01.818 Encounter for other preprocedural examination (principal); H25.12 Age-related nuclear cataract, left eye ==

== ENCOUNTER 2024-06-02 07:42 | Day surgery (SDC) | payer MEDICARE, OTHER, SELFPAY ==
--- NOTE | 2024-06-02 | OP_ITS ---
OPERATION DATE: 06/02/2024 SURGEON: Minh Tyler D.O. PREOPERATIVE DIAGNOSIS: 1. Nuclear sclerotic cataract left eye 2. Primary open angle glaucoma left eye. POSTOPERATIVE DIAGNOSIS: 1. Nuclear sclerotic cataract left eye. 2. Primary open angle glaucoma left eye. PROCEDURE NAME: 1. Cataract extraction with intraocular lens placement of the left eye. 2. Aborted Hydrus stent insertion left eye. ANESTHESIA: Topical. ESTIMATED BLOOD LOSS: Zero. COMPLICATIONS: None. PROCEDURE: The patient was brought to the Operating Room in supine position. After proper identification, the left eye was prepped and draped in a sterile ophthalmic fashion. A paracentesis was created at the 5 o'clock position. Approximately 1 cc of unpreserved Xylocaine was injected into the anterior chamber followed by Amvisc Plus. Using a 2.6 mm Keratome blade, a clear corneal incision was created at the 2 o'clock limbus. A cystotome was then used to begin a curvilinear capsulorrhexis that was continued for 360 degrees with the Utrata forceps. BSS on a 26 gauge cannula was injected beneath the anterior capsule to hydrodissect as well as hydrodelineate the lens. After ensuring mobility, phacoemulsification was performed in a resdyqd-toi-duehvy-type fashion. After all nuclear material had been removed from the eye, IA was introduced and all residual cortical material was cleaned up. Additional Amvisc Plus was injected into the posterior bag and a lens model MX60, 23.0 diopters was injected and dialed into position. After ensuring centration, steps were taken to move on to the glaucoma Hydrus stent insertion. Healon 5 was injected into the anterior chamber to further pressurize and stabilize it. The patient?s head was rotated away from the surgeon, approximately 20 degrees with the operating microscope rotated toward the surgeon, approximately 20 degrees. Amvisc Plus was placed on the surface of the gonioprism that was placed on the surface of the eye and visualization could be achieved with the trabecular meshwork at the 9 o?clock location. The Hydrus stent was called for and primed and inserted through the temporal wound and guided across the anterior chamber with visualization until it reached the trabecular meshwork at the 9 o?clock location. The tip of the mud analysis supervisor was used to dissect into Schlemm?s canal. Once felt to be accessed, the Hydrus stent was deployed on multiple locations, approximately one clock hour apart from each other, in an attempt to seat the stent into Schlemm?s canal. This proved to be difficult due to the visualization was impaired due to a dense degree of arcus on the cornea and the dense degree of iris processes. At one point, it was felt to be seated, with all three windows into the Schlemm?s canal; however, it could not be verified that it was in the canal, given the dense degree of iris processes that existed. It was felt that this was not a safe position to be, and the concern was that it was placed into the ciliary body; therefore, this was backed out into the mud analysis supervisor. After multiple attempts, the compromise of the trabecular meshwork and the Schlemm?s canal was considered. So, therefore, the stent was aborted and the patient?s head was rotated back to more neutral cataract position, as well as the microscope. IA was reintroduced into the anterior chamber and all residual Amvisc Plus and Healon 5 were removed from the eye. BSS on a 30 gauge cannula was then injected into the stroma of both the clear corneal incision as well as paracentesis to hydrate the wounds. Additional BSS was injected into the anterior chamber to pressurize the eye at approximately 20 to 22 mmHg by finger tension. 0.1 mL of antibiotic was injected into the anterior chamber. Weck-Hellen sponges were used to check the wounds to be watertight. One drop of apraclonidine and one drop of prednisolone acetate were placed into the eye and a shield was placed over top. The patient was sent to the postoperative area in satisfactory condition to follow up the following day for postoperative care. LLOYD
--- NOTE | 2024-06-02 07:42 | HP_ITS ---
PREOPERATIVE HISTORY AND PHYSICAL ? Date:? 06/01/2024 ? HISTORY:? The patient is an 84-year-old female with complaints of declining vision out of her left eye.? The onset of this has been very gradual, effecting her over the last several years.? She states having difficulty with night time driving and seeing road signs at a distance.? More light is needed to read.? She states having difficulty with watching television and seeing the TV guide at the bottom of the screen.? ? Additionally, she states concern over progression of glaucoma.? This is something that she has had family members go blind from, and she feels that she cannot remain compliant to the use of the drops, because she feels that there has been an advancement in the disease state.? She also states having difficulty with side effects from the drops in the past.? ? PAST OCULAR HISTORY:? Age related macular degeneration. ? PAST MEDICAL HISTORY:? Hypertension. ? SOCIAL HISTORY:? Denies tobacco, alcohol or recreational drug abuse.? ? SYSTEMIC MEDICATIONS:? Include lisinopril, amlodipine, hydrochlorothiazide. ? ALLERGIES:? Denies. ? REVIEW OF SYSTEMS:? No pertinent positives. ? PHYSICAL EXAM:? GENERAL:? She is awake, alert and oriented x3, well developed, well nourished, in no acute distress.? ? HEART:? Regular rate and rhythm. ? LUNGS:? Clear bilaterally. ? ABDOMEN:? Soft, non-tender, non-distended. ? EXTREMITIES:? No pitting edema. ? OPHTHALMIC EXAM:? Revealed a visual acuity of 20/50 in the right and 20/70 -2 in the left.? Pupils motility, muscle balance, confrontational visual miller within normal limits bilaterally.? Pressures were measured at 23 and 22, right and left eye respectively.? Slit lamp exam revealed blepharitis with a severe decrease in tear film bilaterally.? Conjunctiva, cornea, anterior chamber and iris were within normal limits bilaterally.? Lens status demonstrated 3+ nuclear sclerosis bilaterally. ? FUNDUS EXAM:? Revealed a good view with good dilation bilaterally.? Optic discs, vessels, periphery and vitreous were within normal limits bilaterally.? The macula demonstrated retinal pigment epithelium mottling bilaterally.?? ? ASSESSMENT AND PLAN:? 1.? Visually significant cataract, left eye.? After risks, benefits, alternatives, as well as expectations were delivered to the patient, she elected to go forward with cataract removal.? She understands the risks include but not limited to infection, bleeding, loss of vision, loss of the eye itself.? Secondly, she understands postoperatively she is likely to require spectacle correction for best visual acuity.? Finally, a complete ophthalmic exam was performed, there is not determined to be any other source of visual decline other than that of the cataract.?? 2.? Primary open angle glaucoma, mild severity, left eye. ??After risks, benefits, alternatives, as well as expectations were delivered to the patient, she elected to receive Hydrus stent insertion at the time of her cataract removal.? She understands the risks include but not limited to infection, bleeding, loss of vision, loss of the eye itself, as well as an increased risk of intraocular bleeding, as well as the understanding that it still may be the case that the diagnosis of glaucoma can progress and, this does not guarantee any elimination of glaucoma drops afterwards.? ? After understanding all the risks as well as expectations, she elected to go forward with procedures as listed above and will be doing so in the near future. LLOYD
--- OUTSIDE RECORDS SUMMARY | 2024-06-02 07:48 | XMS_ITS | CCD ---
Author Organization [facility] Care Team Providers Care Director Drug Safety Name Role Phone Olga Hayes Primary Care Unavailable Rush Desai Attending Unavailable Rush Desai Admitting Unavailable [place], DR STEVEN Scruggs Admitting Unavailable [place], DR [place] Primary Care Unavailable [place], DR STEVEN Scruggs Attending Unavailable [place], DR STEVEN Scruggs Consulting Unavailable [place], DR [place] Attending Unavailable [place], DR [place] Consulting Unavailable [place], DR OH Primary Care Unavailable [place], DR [place] Admitting Unavailable [place], DR [place] Attending Unavailable [place], DR [place] Primary Care Unavailable [place], DR [place] Admitting Unavailable [place], DR STEVEN Scruggs Consulting Unavailable [place], DR [place] Consulting Unavailable [place], DR [place] Primary Care Unavailable [place], DR STEVEN Scruggs Admitting Unavailable [place], DR STEVEN Scruggs Attending Unavailable [place], DR STEVEN Scruggs Consulting Unavailable MATILDA, DR RITESH Goldstein Consulting Unavailable Roselyn Weathers Unavailable Unallocated , Noms Provider Primary Care Provi nathan LANA MOSES Attending Unavailable LANA MOSES Attending Unavailable LANA MOSES Attending Unavailable LANA MOSES Attending Unavailable NANCY MONTEIRO Attending Unavailable JUAN M TYLER Attending Unavailable LANA MOSES Attending Unavailable JUAN M TYLER Attending Unavailable NANCY MONTEIRO Attending Unavailable Medications Current Medications Medication Drug Class(es) Dates Sig (Normalized) Sig (Original) amLODIPine 5 mg oral tablet (2 sources) Dihydropyridine Calcium Channel Trev Start: 11-12-19 24 End: 11-12-19 25 take 1 tablet by mouth once daily amLODIPine (Norvasc) 5 MG tablet Indications: Secondary hypertension (CMS/HCC) Take 1 tablet (5 mg) by mouth Daily 30 tablet 11 11/12/2023 11/11/2024 Active dorzolamide 20 mg/ml / timolol 5 mg/ml ophthalmic solution (2 sources) Carbonic Anhydrase Inhibitor, beta-Adrenergic Trev Start: 02-22-20 End: 02-22-20 take 1 drop(s) into the eye(s) in the morning dorzolamide-timolol (Cosopt) 2-0.5 % ophthalmic solution Indications: Primary open angle glaucoma (POAG) of both eyes, mild stage (CMS/HCC) Administer 1 drop into both eyes in the morning and 1 drop before bedtime. 10 mL 5 02/22/2024 02/21/2025 Active doxycycline monohydrate 100 mg oral capsule (1 source) Tetracycline-class Drug Start: 08-09-19 take 1 capsule by mouth every twelve hours Doxycycline Monohydrate 100 MG 1 capsule Orally every 12 hrs for 7 days Jul, Active hydroCHLOROthiazide 25 mg oral tablet (2 sources) Thiazide Diuretic Start: 11-12-19 End: 11-12-19 take 1 tablet by mouth once daily hydroCHLOROthiazide (HYDRODiuril) 25 MG tablet Indications: Secondary hypertension (CMS/HCC) Take 1 tablet (25 mg) by mouth Daily 100 tablet 3 11/12/2023 11/11/2024 Active ketorolac tromethamine 5 mg/ml ophthalmic solution (1 source) Nonsteroidal Anti-inflammatory Drug, Cyclooxygenase Inhibitor Start: 05-24-20 End: 06-23-20 24 take 1 drop(s) into the eye(s) in the morning ketorolac (Acular) 0.5 % ophthalmic solution Indications: Age-related nuclear cataract of both eyes Administer 1 drop into affected eye(s) in the morning and 1 drop before bedtime. 5 mL 1 05/24/2024 06/23/2024 Active latanoprost 0.05 mg/ml ophthalmic solution (2 sources) Prostaglandin Analog Start: 02-22-20 End: 02-22-20 take 1 drop(s) into the eye(s) at bedtime latanoprost (Xalatan) 0.005 % ophthalmic solution Indications: Primary open angle glaucoma (POAG) of both eyes, mild stage (CMS/HCC) Administer 1 drop into both eyes at bedtime 2.5 mL 6 02/22/2024 02/21/2025 Active lisinopril 40 mg oral tablet (3 sources) Angiotensin Converting Enzyme Inhibitor Start: 08-03-19 take 1 tablet by mouth in the morning lisinopril 40 MG tablet Indications: Secondary hypertension (CMS/HCC) Take 1 tablet (40 mg) by mouth in the morning. 100 tablet 3 08/03/2023 Active take 1 tablet by alex th every twenty-four hours Lisinopril 40 MG 1 tablet By Mouth Daily for 90 day(s) Active Multi For Her 50+ - (1 source) Multi For Her 50 + - as directed Orally Daily Active mupirocin 0.02 mg/mg topical ointment (1 source) RNA Synthetase Inhibitor Antibacterial Start: 08-09-19 Mupirocin 2 % 1 application with Qtip to affected area Externally 2 times a day for 7 days Jul, Active ofloxacin 3 mg/ml ophthalmic solution (1 source) Quinolone Antimicrobial Start: 05-24-20 End: 05-25-20 take 1 drop(s) into the eye(s) five times daily ofloxacin (Ocuflox) 0.3 % ophthalmic solution Indications: Age-related nuclear cataract of both eyes Administer 1 drop into affected eye(s) 5 (five) times a day for 1 day Starting 1 day before surgery, continue after surgery as directed 5 mL 1 05/24/2024 05/25/2024 Active prednisoLONE acetate 10 mg/ml ophthalmic suspension (1 source) Corticosteroid Start: 05-24-20 End: 06-07-20 prednisoLONE acetate (Pred-Forte) 1 % ophthalmic suspension Indications: Age-related nuclear cataract of both eyes Administer 1 drop into affected eye(s) in the morning and 1 drop at noon and 1 drop in the evening and 1 drop before bedtime. Do all this for 14 days. 5 mL 1 05/24/2024 06/07/2024 Active Problems Active Problems Problem Classification Problem Date Documented Date Episodic/Chronic Cataract (3 sources) Bilateral age-related nuclear cataracts; Translations: [Age-related nuclear cataract, bilateral] Onset: 3 03-06-2023 Chronic Chronic kidney disease (1 source) Chronic kidney disease stage 3; Translations: [Chronic kidney disease, stage 3 (moderate)] Chronic Essential hypertension (6 sources) Essential (primary) hypertension; Translations: [Essential hypertension] Onset: 2 Chronic Glaucoma (3 sources) Primary open angle glaucoma; Translations: [Primary open-angle glaucoma, bilateral, mild stage] Onset: 3 03-06-2023 Chronic Hypertension with complications and secondary hypertension (3 sources) Hypertensive renal disease; Translations: [Hypertensive chronic kidney disease with stage 1 through stage 4 chronic kidney disease, or unspecified chronic kidney disease] Onset: 4 08-03-2023 Chronic Inflammation; infection of eye (except that caused by tuberculosis or sexually transmitteddisease) (3 sources) Blepharitis of upper and lower eyelids of bilateral eyes; Translations: [Unspecified blepharitis right eye, upper and lower eyelids] Onset: 3 03-06-2023 Episodic Other circulatory disease (1 source) Elevated blood-pressure reading, without diagnosis of hypertension Episodic Other diseases of kidney and ureters (1 source) Secondary hyperparathyroidism; Translations: [Secondary hyperparathyroidism of renal origin] Chronic Other eye disorders (3 sources) Dry eyes; Translations: [Dry eye syndrome of bilateral lacrimal glands] Onset: 3 03-06-2023 Episodic Other screening for suspected conditions (not mental disorders or infectious disease) (4 sources) Encounter for screening mammogram for malignant neoplasm of breast; Translations: [ENC SCR MAMMO MALIG NEOPLASM BREAST] Onset: 2 Episodic Retinal detachments; defects; vascular occlusion; and retinopathy (3 sources) Nonexudative age-related macular degeneration; Translations: [Nonexudative age-related macular degeneration, bilateral, early dry stage] Onset: 3 03-06-2023 Chronic Skin and subcutaneous tissue infections (1 source) Cellulitis of other sites Episodic Past or Other Problems Problem Classification Problem Date Documented Da te Episodic/Chronic Other ear and sense organ disorders (2 sources) Impacted cerumen of bilateral ears; Translations: [Impacted cerumen, bilateral] Onset: 08-03-2023 08-03-2023 Episodic Varicose veins of lower extremity (4 sources) Varicose veins of bilateral lower extremities with pain; Translations: [VARICOSE VNS CHANG LOW EXTREM W/PAIN] Onset: 09-12-2021 Episodic Results Test Name Value Interpretation Reference Range Facility Ophthalmic OCT panelon 05-24 [facility] Right [facility] Images reviewed and comparison made to baseline, Images reviewed. To assess optic nerve function and for use in future follow-up. Reliability: borderline. Left Eye Images reviewed and comparison made to baseline, Images reviewed. To assess optic nerve function and for use in future follow-up. Reliability: good and adequate. Notes Mild nerve fiber layer (NFL) thinning right eye (OD). Stable. Both eyes (OU). [facility] [employer] [facility] (narrative) [facility] [employer] Optical coherence tomography study reporton 05-24-2024 [facility] [employer] [facility] Radiology Study observation (narrative) [facility] [employer] US Eye+Orbit - bilateralon 1 Diagnosis: Cataract both eyes (OU) Testing Indication: Performed for preop measurements in the determination of an intraocular lens (IOL) for both eyes (OU) Test Reliability: Good quality both eyes (OU) Interpretation: Good measurements for intraocular lens (IOL) calculation purposes. Calculation made for both eyes (OU). [facility] [employer] [facility] (narrative) [facility] CBC AUTO DIFFon 07-17-2022 BASO # 0.0 103/ul Normal 0.0-0.1 [facility] Comment on above: Performed By: #### C BC #### [facility] [address] [place] [address] Dr. Kassie Cheng Basophils/100 WBC (Bld) 0.3 % Normal 0.2-2.0 [facility] Comment on above: Performed By: #### C BC #### [facility] [address] [place] [address] Dr. Kassie Cheng EO # 0.0 103/ul Normal 0.0-0.7 [facility] Comment on above: Performed By: #### C BC #### [facility] [address] [place] [address] Dr. Kassie Cheng Eosinophils/100 WBC (Bld) 0.7 % Critically low 0.9-7.0 [facility] Comment on above: Performed By: #### C BC #### [facility] [address] [place] [address] Dr. Kassie Cheng Erythrocyte distribution width (RBC) [Ratio] 13.9 % Normal 11.0-15.0 [facility] Comment on above: Performed By: #### C BC #### [facility] [address] [place] [address] Dr. Kassie Cheng Hematocrit (Bld) [Volume fraction] 40.6 % Normal 36.0-48.0 [facility] Comment on above: Performed By: #### C BC #### [facility] [address] [place] [address] Dr. Kassie Cheng Hemoglobin (Bld) [Mass/Vol] 13.2 g/dL Normal 12.0-16.0 [facility] Comment on above: Performed By: #### C BC #### [facility] [address] [place] [address] Dr. Kassie Cheng IG # 0.01 10e3/ul Normal 0.00-0.03 [facility] Comment on above: Performed By: #### C BC #### [facility] [address] [place] [address] Dr. Kassie Cheng IG % 0.2 % Normal 0.0-0.5 [facility] Comment on above: Performed By: #### C BC #### [facility] [address] [place] [address] Dr. Kassie Cheng LYMPH # 1.2 103/ul Normal 1.2-3.8 [facility] Comment on above: Performed By: #### C BC #### [facility] [address] [place] [address] Dr. Kassie Cheng Lymphocytes/100 WBC (Bld) 20.0 % Critically low 20.5-60.0 [facility] Comment on above: Performed By: #### C BC #### [facility] [address] [place] [address] Dr. Kassie Cheng MANUAL DIFF REQ NO Normal [facility] Comment on above: Performed By: #### C BC #### [facility] [address] [place] [address] Dr. Kassie Cheng MCH (RBC) [Entitic mass] 27.7 pg Normal 26.7-34.0 [facility] Comment on above: Performed By: #### C BC #### [facility] [address] [place] [address] Dr. Kassie Cheng MCHC (RBC) [Mass/Vol] 32.5 g/dL Normal 29.9-35.2 [facility] Comment on above: Performed By: #### C BC #### [facility] [address] [address] [address] Kassie Cheng MCV (RBC) [Entitic vol] 85.1 fL Normal 81.0-99.0 [facility] Comment on above: Performed By: #### C BC #### [facility] [address] [address] [address] Kassie Cheng MONO # 0.3 103/ul Normal 0.3-0.8 [facility] Comment on above: Performed By: #### C BC #### [facility] [address] [place] [address] Dr. Kassie Cheng Monocytes/100 WBC (Bld) 5.2 % Normal 1.7-12.0 [facility] Comment on above: Performed By: #### C BC #### [facility] [address] [place] [address] Dr. Kassie Cheng NEUT # 4.4 103/ul Normal 1.4-6.5 [facility] Comment on above: Performed By: #### C BC #### [facility] [address] [place] [address] Dr. Kassie Cheng Neutrophils/100 WBC (Bld) 73.6 % Normal 43.0-75.0 [facility] Comment on above: Performed By: #### C BC #### [facility] [address] [place] [address] Dr. Kassie Cheng Platelet mean volume (Bld) [Entitic vol] 10.4 fL Normal 9.5-13.5 [facility] Comment on above: Performed By: #### C BC #### [facility] [address] [place] [address] Dr. Kassie Cheng PLT 212 103/ul Normal 150-450 [facility] Comment on above: Performed By: #### C BC #### [facility] [address] [place] [address] Dr. Kassie Cheng RBC 4.77 106/ul Normal 4.20-5.40 [facility] Comment on above: Performed By: #### C BC #### [facility] [address] [place] [address] Dr. Kassie Cheng WBC 5.9 103/ul Normal 4.0-11.0 [facility] Comment on above: Performed By: #### C BC #### [facility] [address] [place] [address] Dr. Kassie Cheng PROF 14(COMP METB)on 022 Albumin [Mass/Vol] 4.0 g/dL Normal 3.4-5.0 [facility] Comment on above: Performed By: #### C MP, T4, TSH #### [facility] [address] [place] [address] Dr. Kassie Cheng Albumin/Globulin [Mass ratio] 1.0 {ratio} Normal [facility] Comment on above: Performed By: #### C MP, T4, TSH #### [facility] [address] [place] [address] Dr. Kassie Cheng ALP [Catalytic activity/Vol] 75 U/L Normal 46-116 [facility] Comment on above: Performed By: #### C MP, T4, TSH #### [facility] [address] [place] [address] Dr. Kassie Cheng ALT [Catalytic activity/Vol] 22 U/L Normal 14-59 [facility] Comment on above: Performed By: #### C MP, T4, TSH #### [facility] [address] [place] [address] Dr. Kassie Cheng Anion gap [Moles/Vol] 14.3 mmol/L Normal [facility] Comment on above: Performed By: #### C MP, T4, TSH #### [facility] [address] [place] [address] Dr. Kassie Cheng AST [Catalytic activity/Vol] 21 U/L Normal 15-37 [facility] Comment on above: Performed By: #### C MP, T4, TSH #### [facility] [address] [place] [address] Dr. Kassie Cheng Bilirubin [Mass/Vol] 0.5 mg/dL Normal 0.2-1.0 [facility] Comment on above: Performed By: #### C MP, T4, TSH #### [facility] [address] [address] [address] Kassie Cheng Calcium [Mass/Vol] 9.5 mg/dL Normal 8.5-10.1 [facility] Comment on above: Performed By: #### C MP, T4, TSH #### [facility] [address] [place] [address] Dr. Kassie Cheng Chloride [Moles/Vol] 100 mmol/L Normal 98-107 [facility] Comment on above: Performed By: #### C MP, T4, TSH #### [facility] [address] [place] [address] Dr. Kassie Cheng CO2 [Moles/Vol] 29.5 mmol/L Normal 21.0-32.0 [facility] Comment on above: Performed By: #### C MP, T4, TSH #### [facility] [address] [place] [address] Dr. Kassie Cheng Creatinine [Mass/Vol] 0.99 mg/dL Normal 0.55-1.02 [facility] Comment on above: Performed By: #### C MP, T4, TSH #### [facility] [address] [place] [address] Dr. Kassie Cheng EGFR-AF VENEZUELAN >60 Normal >=60 [facility] Comment on above: Performed By: #### C MP, T4, TSH #### [facility] [address] [place] [address] Dr. Kassie Cheng EGFR-NON AF VENEZUELAN 54 mL/min/1.73m2 Critically low >=60 [facility] Comment on above: Performed By: #### C MP, T4, TSH #### [facility] [address] [place] [address] Dr. Kassie Cheng Globulin (S) [Mass/Vol] 3.9 g/dL Normal [facility] Comment on above: Performed By: #### C MP, T4, TSH #### [facility] [address] [address] [address] Kassie Cheng Glucose [Mass/Vol] 101 mg/dL Normal 74-106 [facility] Comment on above: Performed By: #### C MP, T4, TSH #### [facility] [address] [place] [address] Dr. Kassie Cheng Potassium [Moles/Vol] 3.8 mmol/L Normal 3.5-5.1 [facility] Comment on above: Performed By: #### C MP, T4, TSH #### [facility] [address] [place] [address] Dr. Kassie Cheng Protein [Mass/Vol] 7.9 g/dL Normal 6.4-8.2 [facility] Comment on above: Performed By: #### C MP, T4, TSH #### [facility] [address] [place] [address] Dr. Kassie Cheng Sodium [Moles/Vol] 140 mmol/L Normal 136-145 [facility] Comment on above: Performed By: #### C MP, T4, TSH #### [facility] [address] [place] [address] Dr. Kassie Cheng Urea nitrogen [Mass/Vol] 17.0 mg/dL Normal 7.0-18.0 [facility] Comment on above: Performed By: #### C MP, T4, TSH #### [facility] [address] [place] [address] Dr. Kassie Cheng Urea nitrogen/Creatinine [Mass ratio] 17.2 mg/mg Normal [facility] Comment on above: Performed By: #### C MP, T4, TSH #### [facility] [address] [place] [address] Dr. Kassie Cheng T4on 07-17-2022 T4 [Mass/Vol] 9.40 ug/dL Normal 4.80-13.[address] [facility] Comment on above: Performed By: #### C MP, T4, TSH #### [facility] [address] [place] [address] Dr. Kassie Cheng TSHon 07-17-2022 TSH 1.588 uIU/mL Normal 0.358-3.740 [facility] Comment on above: Performed By: #### C MP, T4, TSH #### [facility] [address] [id number] Kassie Cheng MG MAMM SCREEN 3D CHANG CADon 06-06-2022 MG MAMM SCREEN 3D CHANG CAD Patient: IRIS ESTES Exam Date: 06/06/2022 : 1940 Gender:F Ordering : DR ADRIANO CORONA D.O. Admission #: [id number] Family : Order #: [id number] CLICK HERE TO VIEW EXAM RADIOLOGY REPORT [...] Treatments None Family Cancers None LOCATION: [facility] BREAST COMPOSITION: Heterogeneously dense,which may obscure [...] Grove MD on 06/06/2022 at 13:56 Normal [facility] VC COMP CONSULTATIONon 09-12 VC COMP CONSULTATION Patient: IRIS ESTES Exam Date: 09/12/2021 : 1940 Gender:F Ordering : DR STEVEN GROVE M.D. Admission #: [id number] Family : Order #: [id number] CLICK HERE TO VIEW EXAM RADIOLOGY REPORT [...] M.D. on 09/12/2021 at 11:05 Normal [facility] VC VENOUS REFLUX CHANG LMTon 0 09-12-2021 VC VENOUS REFLUX CHANG LMT Patient: IRIS ESTES Exam Date: 09/12/2021 : 1940 Gender:F Ordering : DR STEVEN GROVE M.D. Admission #: [id number] Family : Order #: [id number] CLICK HERE TO VIEW EXAM RADIOLOGY REPORT [...] Thigh Thrombi: None. Compressibility: Normal. Flow: Normal. Counter Tacker: Counter Tacker distal calf measures 1.9 mm with 0.4 [...] [place] M.D. on 09/12/2021 at 10:57 Normal [facility] Dipstick and Microscopicon 0 09-28-2018 Appearance Nom (U) Clear Normal Clear [facility] Comment on above: Order Comment: DR. Stephan MORRISON ADD MICROSCOPIC TO UA Name Collection Type: Clean-Voided Midstream Performed By: #### P ROCRERAT, PTH, [id number], URIC, MG, RENAL, CBCNO, ADDONUAPLUS #### [address] Bacteria LM.HPF #/area (Urine sed) None Seen Normal None Seen [facility] Comment on above: Order Comment: DR. Stephan MORRISON ADD MICROSCOPIC TO UA Name Collection Type: Clean-Voided Midstream Performed By: #### P ROCRERAT, PTH, [id number], URIC, MG, RENAL, CBCNO, ADDONUAPLUS #### [address] Bilirubin,Urine Negative Normal Negative [facility] Comment on above: Order Comment: DR. Stephan MORRISON ADD MICROSCOPIC TO UA Name Collection Type: Clean-Voided Midstream Performed By: #### P ROCRERAT, PTH, [id number], URIC, MG, RENAL, CBCNO, ADDONUAPLUS #### [facility] [address] [place] [address] Color Nom (U) Yellow Normal Yellow [facility] Comment on above: Order Comment: DR. Stephan MORRISON ADD MICROSCOPIC TO UA Name Collection Type: Clean-Voided Midstream Performed By: #### P ROCRERAT, PTH, [id number], URIC, MG, RENAL, CBCNO, ADDONUAPLUS #### [address] Glucose Ql (U) Normal Normal Normal [facility] Comment on above: Order Comment: DR. Stephan MORRISON ADD MICROSCOPIC TO UA Name Collection Type: Clean-Voided Midstream Performed By: #### P ROCRERAT, PTH, [id number], URIC, MG, RENAL, CBCNO, ADDONUAPLUS #### [address] Hyaline Casts,Urine 0-8 Normal 0-8 [facility] Comment on above: Order Comment: DR. Stephan MORRISON ADD MICROSCOPIC TO UA Name Collection Type: Clean-Voided Midstream Result Comment: PERF ORMED BY: [place] [address] PATHOLOGIST CRYOGENICS ENGINEER ENRRIQUE HARVEY M.D. Performed By: #### P ROCRERAT, PTH, [id number], URIC, MG, RENAL, CBCNO, ADDONUAPLUS #### [address] Ketones Ql (U) Negative Normal Negative [facility] Comment on above: Order Comment: DR. Stephan MORRISON ADD MICROSCOPIC TO UA Name Collection Type: Clean-Voided Midstream Performed By: #### P ROCRERAT, PTH, [id number], URIC, MG, RENAL, CBCNO, ADDONUAPLUS #### [address] Leukocyte esterase Test strip Ql (U) 2+ High Negative [facility] Comment on above: Order Comment: DR. Stephan MORRISON ADD MICROSCOPIC TO UA Name Collection Type: Clean-Voided Midstream Performed By: #### P ROCRERAT, PTH, [id number], URIC, MG, RENAL, CBCNO, ADDONUAPLUS #### [address] Nitrite,Urine Negative Normal Negative [facility] Comment on above: Order Comment: DR. Stephan MORRISON ADD MICROSCOPIC TO UA Name Collection Type: Clean-Voided Midstream Performed By: #### P ROCRERAT, PTH, [id number], URIC, MG, RENAL, CBCNO, ADDONUAPLUS #### [address] Occult Blood,Urine Negative Normal Negative [facility] Comment on above: Order Comment: DR. Stephan MORRISON ADD MICROSCOPIC TO UA Name Collection Type: Clean-Voided Midstream Performed By: #### P ROCRERAT, PTH, [id number], URIC, MG, RENAL, CBCNO, ADDONUAPLUS #### [address] pH (U) 5.5 [pH] Normal 5.0-9.0 [facility] Comment on above: Order Comment: DR. Stephan MORRISON ADD MICROSCOPIC TO UA Name Collection Type: Clean-Voided Midstream Performed By: #### P ROCRERAT, PTH, [id number], URIC, MG, RENAL, CBCNO, ADDONUAPLUS #### [address] Protein mass conc (U) Negative Normal Negative [facility] Comment on above: Order Comment: DR. Stephan MORRISON ADD MICROSCOPIC TO UA Name Collection Type: Clean-Voided Midstream Performed By: #### P ROCRERAT, PTH, [id number], URIC, MG, RENAL, CBCNO, ADDONUAPLUS #### [address] RBC LM.HPF #/area (Urine sed) 1-2 Normal 0-4 [facility] Comment on above: Order Comment: DR. Stephan MORRISON ADD MICROSCOPIC TO UA Name Collection Type: Clean-Voided Midstream Performed By: #### P ROCRERAT, PTH, [id number], URIC, MG, RENAL, CBCNO, ADDONUAPLUS #### [address] Specificy Proctor,Urine 1.014 Normal 1.001-1.030 [facility] Comment on above: Order Comment: DR. Stephan MORRISNO ADD MICROSCOPIC TO UA Name Collection Type: Clean-Voided Midstream Performed By: #### P ROCRERAT, PTH, [id number], URIC, MG, RENAL, CBCNO, ADDONUAPLUS #### [facility] [address] Squamous Epithelial Cell,Urine 1-2 Normal 0-2 [facility] Comment on above: Order Comment: DR. Stephan MORRISON ADD MICROSCOPIC TO UA Name Collection Type: Clean-Voided Midstream Performed By: #### P ROCRERAT, PTH, [id number], URIC, MG, RENAL, CBCNO, ADDONUAPLUS #### [address] Urobilinogen,Urine Normal Normal Normal [facility] Comment on above: Order Comment: DR. Stephan MORRISON ADD MICROSCOPIC TO UA Name Collection Type: Clean-Voided Midstream Performed By: #### P ROCRERAT, PTH, [id number], URIC, MG, RENAL, CBCNO, ADDONUAPLUS #### [address] WBC LM.HPF #/area (Urine sed) 1-2 Normal 0-4 [facility] Comment on above: Order Comment: DR. Stephan MORRISON ADD MICROSCOPIC TO UA Name Collection Type: Clean-Voided Midstream Performed By: #### P ROCRERAT, PTH, [id number], URIC, MG, RENAL, CBCNO, ADDONUAPLUS #### [address] Hemogram CBC Without Diffon 09-28-2018 Erythrocyte distribution width Ratio (RBC) 14.0 % Normal 11.9-15.3 [facility] Comment on above: Order Comment: DR. Stephan MORRISON ADD MICROSCOPIC TO UA Performed By: #### P ROCRERAT, PTH, [id number], URIC, MG, RENAL, CBCNO, ADDONUAPLUS #### [address] Hematocrit Volume Fraction (Bld) 40.8 % Normal 34.0-46.4 [facility] Comment on above: Order Comment: DR. Stephan MORRISON ADD MICROSCOPIC TO UA Performed By: #### P ROCRERAT, PTH, [id number], URIC, MG, RENAL, CBCNO, ADDONUAPLUS #### [address] Hemoglobin mass conc (Bld) 13.5 g/dL Normal 11.8-15.4 [facility] Comment on above: Order Comment: DR. Stephan MORRISON ADD MICROSCOPIC TO UA Performed By: #### P ROCRERAT, PTH, [id number], URIC, MG, RENAL, CBCNO, ADDONUAPLUS #### [address] MCH Entitic mass (RBC) 33.2 g/dL Normal 32.0-35.0 [facility] Comment on above: Order Comment: DR. Stephan MORRISON ADD MICROSCOPIC TO UA Performed By: #### P ROCRERAT, PTH, [id number], URIC, MG, RENAL, CBCNO, ADDONUAPLUS #### [address] MCH Entitic mass (RBC) 28.0 pg Normal 24.7-34.3 [facility] Comment on above: Order Comment: DR. Stephan MORRISON ADD MICROSCOPIC TO UA Performed By: #### P ROCRERAT, PTH, [id number], URIC, MG, RENAL, CBCNO, ADDONUAPLUS #### [address] MCV Entitic volume (RBC) 84.2 fL Normal 80-100 [facility] Comment on above: Order Comment: DR. Stephan MORRISON ADD MICROSCOPIC TO UA Performed By: #### P ROCRERAT, PTH, [id number], URIC, MG, RENAL, CBCNO, ADDONUAPLUS #### [address] Platelet mean volume Entitic volume (Bld) 9.6 fL Normal 6.3-10.7 [facility] Comment on above: Order Comment: DR. Stephan MORRISON ADD MICROSCOPIC TO UA Result Comment: PERF ORMED BY: [place] [address] PATHOLOGIST CRYOGENICS ENGINEER ENRRIQUE HARVEY M.D. Performed By: #### P ROCRERAT, PTH, [id number], URIC, MG, RENAL, CBCNO, ADDONUAPLUS #### [facility] [address] Platelets #/vol (Bld) 224 10*3/uL Normal 150-450 [facility] Comment on above: Order Comment: DR. Stephan MORRISON ADD MICROSCOPIC TO UA Performed By: #### P ROCRERAT, PTH, [id number], URIC, MG, RENAL, CBCNO, ADDONUAPLUS #### [facility] [address] [place] [address] RBC #/vol (Bld) 4.84 10*6/uL Normal 3.60-5.00 [facility] Comment on above: Order Comment: DR. Stephan MORRISON ADD MICROSCOPIC TO UA Performed By: #### P ROCRERAT, PTH, [id number], URIC, MG, RENAL, CBCNO, ADDONUAPLUS #### [facility] [address] [place] [address] WBC #/vol (Bld) 4.3 10*3/uL Normal 3.8-11.6 [facility] Comment on above: Order Comment: DR. Stephan MORRISON ADD MICROSCOPIC TO UA Performed By: #### P ROCRERAT, PTH, [id number], URIC, MG, RENAL, CBCNO, ADDONUAPLUS #### [address] Magnesiumon 09-28-2018 Magnesium mass conc 1.8 mg/dL Normal 1.6-2.6 [facility] Comment on above: Order Comment: DR. Stephan MORRISON ADD MICROSCOPIC TO UA Performed By: #### P ROCRERAT, PTH, [id number], URIC, MG, RENAL, CBCNO, ADDONUAPLUS #### [address] Parathyroid Hormone Intacton 09-28-2018 Parathyroid Hormone Intact 44.2 pg/mL Normal 12-88 [facility] Comment on above: Order Comment: DR. Stephan MORRISON ADD MICROSCOPIC TO UA Result Comment: PERF ORMED BY: [place] [address] PATHOLOGIST CRYOGENICS ENGINEER ENRRIQUE HARVEY M.D. Performed By: #### P ROCRERAT, PTH, [id number], URIC, MG, RENAL, CBCNO, ADDONUAPLUS #### [address] Protein Creat Ratio Ur Rando mon 09-28-2018 Creatinine, Urine (Random) 159.8 mg/dL Normal [facility] Comment on above: Order Comment: DR. Stephan MORRISON ADD MICROSCOPIC TO UA Result Comment: No r eference range established Performed By: #### P ROCRERAT, PTH, [id number], URIC, MG, RENAL, CBCNO, ADDONUAPLUS #### [address] Protein mass conc (U) mg/dL Normal 0-9 [facility] Comment on above: Order Comment: DR. Stephan MORRISON ADD MICROSCOPIC TO UA Performed By: #### P ROCRERAT, PTH, [id number], URIC, MG, RENAL, CBCNO, ADDONUAPLUS #### [address] Urine Protein/Creatinine Ratio Test not performed Normal 0-200 [facility] Comment on above: Order Comment: DR. Stephan MORRISON ADD MICROSCOPIC TO UA Result Comment: PERF ORMED BY: [place] [address] PATHOLOGIST CRYOGENICS ENGINEER ENRRIQUE HARVEY M.D. Performed By: #### P ROCRERAT, PTH, [id number], URIC, MG, RENAL, CBCNO, ADDONUAPLUS #### [address] Renal Function Panelon 09-28 Albumin mass conc 3.8 g/dL Normal 3.2-5.5 [facility] Comment on above: Order Comment: DR. Stephan MORRISON ADD MICROSCOPIC TO UA Performed By: #### P ROCRERAT, PTH, [id number], URIC, MG, RENAL, CBCNO, ADDONUAPLUS #### [address] Calcium mass conc 9.3 mg/dL Normal 8.2-10.2 [facility] Comment on above: Order Comment: DR. Stephan MORRISON ADD MICROSCOPIC TO UA Performed By: #### P ROCRERAT, PTH, [id number], URIC, MG, RENAL, CBCNO, ADDONUAPLUS #### [facility] [address] Chloride molar conc 104 mmol/L Normal 95-114 [facility] Comment on above: Order Comment: DR. Stephan MORRISON ADD MICROSCOPIC TO UA Performed By: #### P ROCRERAT, PTH, [id number], URIC, MG, RENAL, CBCNO, ADDONUAPLUS #### [facility] [address] CO2 molar conc 26.6 mmol/L Normal 22.0-30.0 [facility] Comment on above: Order Comment: DR. Stephan MORRISON ADD MICROSCOPIC TO UA Performed By: #### P ROCRERAT, PTH, [id number], URIC, MG, RENAL, CBCNO, ADDONUAPLUS #### [facility] [address] [place] [address] Creatinine mass conc 0.95 mg/dL Normal 0.44-1.03 [facility] Comment on above: Order Comment: DR. Stephan MORRISON ADD MICROSCOPIC TO UA Performed By: #### P ROCRERAT, PTH, [id number], URIC, MG, RENAL, CBCNO, ADDONUAPLUS #### [facility] [address] [place] [address] Estimated GFR ( Zainab > 60 [facility] Comment on above: Order Comment: DR. Stephan MORRISON ADD MICROSCOPIC TO UA Result Comment: GFR estimated reference range: According to KDOQI guidelines, <60 ml/min/1.73m2 is sufficient to diagnose a patient with chronic kidney disease. Performed By: #### P ROCRERAT, PTH, [id number], URIC, MG, RENAL, CBCNO, ADDONUAPLUS #### [facility] [address] [place] [address] Estimated GFR (Non- Am 57 Normal [facility] Comment on above: Order Comment: DR. Stephan MORRISON ADD MICROSCOPIC TO UA Performed By: #### P ROCRERAT, PTH, [id number], URIC, MG, RENAL, CBCNO, ADDONUAPLUS #### [facility] [address] Glucose mass conc 95 mg/dL Normal 70-100 [facility] Comment on above: Order Comment: DR. Stephan MORRISON ADD MICROSCOPIC TO UA Result Comment: [facility] Glucose Reference Range is dependent on time and content of last meal. Glucose of more than 200 mg/dL in a nonstressed, ambulatory subject supports the diagnosis of Diabetes Mellitus. ADA recommended reference range Performed By: #### P ROCRERAT, PTH, [id number], URIC, MG, RENAL, CBCNO, ADDONUAPLUS #### [address] Phosphate mass conc 3.9 mg/dL Normal 2.5-4.6 [facility] Comment on above: Order Comment: DR. Stephan MORRISON ADD MICROSCOPIC TO UA Performed By: #### P ROCRERAT, PTH, [id number], URIC, MG, RENAL, CBCNO, ADDONUAPLUS #### [address] Potassium molar conc 3.5 mmol/L Normal 3.5-5.1 [facility] Comment on above: Order Comment: DR. Stephan MORRISON ADD MICROSCOPIC TO UA Performed By: #### P ROCRERAT, PTH, [id number], URIC, MG, RENAL, CBCNO, ADDONUAPLUS #### [facility] [address] [place] [address] [place] Sodium molar conc 137 mmol/L Normal 136-146 [facility] Comment on above: Order Comment: DR. Stephan MORRISON ADD MICROSCOPIC TO UA Performed By: #### P ROCRERAT, PTH, [id number], URIC, MG, RENAL, CBCNO, ADDONUAPLUS #### [place] [address] [place] Urea nitrogen mass conc 14 mg/dL Normal 9-23 [facility] Comment on above: Order Comment: DR. Stephan MORRISON ADD MICROSCOPIC TO UA Performed By: #### P ROCRERAT, PTH, [id number], URIC, MG, RENAL, CBCNO, ADDONUAPLUS #### [facility] [address] [place] [address] [facility] Uric Acidon 09-28-2018 Urate mass conc 6.0 mg/dL Normal 2.6-7.2 [facility] Comment on above: Order Comment: DR. Stephan MORRISON ADD MICROSCOPIC TO UA Performed By: #### P ROCRERAT, PTH, [id number], URIC, MG, RENAL, CBCNO, ADDONUAPLUS #### [facility] [address] [place] [address] [facility] Vitamin D 25 Hydroxy Totalon 09-28-2018 Vitamin D 25 Hydroxy Total 30.1 ng/mL Normal 30-100 [facility] Comment on above: Order Comment: [...] 96(7):1911-30. Performed By: #### P ROCRERAT, PTH, [id number], URIC, MG, RENAL, CBCNO, ADDONUAPLUS #### [facility] [address] [place] [address] [facility] Vital Signs Date Time Vital Sign Value Performing Clinician Facility 08-09-2022 14:00-0500 Body height 149.86 cm Roselyn Weathers Other [facility] Other 08-09-2022 14:00-0500 Body mass index (BMI) [Ratio] 24.84 kg/m2 Roselyn Weathers Other [facility] Other 08-09-2022 14:00-0500 Body temperature 98.9 [degF] Roselyn Weathers Other [facility] Other 08-09-2022 14:00-0500 Body weight 55.79 kg Roselyn Weathers Other [facility] Other 08-09-2022 14:00-0500 Diastolic blood pressure 93 mm[Hg] Roselyn Weathers Other [facility] Other 08-09-2022 14:00-0500 Respiratory rate 18 /min Roselyn Weathers Other [facility] Other 08-09-2022 14:00-0500 SaO2% (BldA) [Mass fraction] 98 % Roselyn Weathers Other [facility] Other 08-09-2022 14:00-0500 Systolic blood pressure 191 mm[Hg] Roselyn eWathers Other [facility] Other Encounters Encounter Date Encounter Type Care Provider Facility Start: 05-24-2024 End: 05-24-2024 Office outpatient visit 25 minutes Juan M Tyler DO Work Phone: [facility] Comment on above: Age-related nuclear cataract of both eyes (Primary Dx); Primary open angle glaucoma (POAG) of both eyes, mild stage (CMS/HCC); Early dry stage nonexudative age-related macular degeneration of both eyes; Dry eyes; Blepharitis of upper and lower eyelids of both eyes, unspecified type Start: 05-24-2024 End: 05-24-2024 Bamboo flowsheet Juan M Tyler DO Work Phone: [facility] Start: 05-24-2024 End: 05-24-2024 Bamboo flowsheet Juan M Tyler DO Work Phone: [facility] Start: 05-24-2024 End: 05-24-2024 ambulatory JUAN M TYLER Not Available Start: 03-14-2024 End: 03-14-2024 ambulatory RUGEN M JOSUÉ Not Available Start: 02-22-2024 End: 02-22-2024 ambulatory JUAN M TYLER Not Available Start: 01-21-2024 End: 01-21-2024 ambulatory NANCY MONTEIRO Not Available Start: 12-14-2023 End: 12-14-2023 ambulatory RUGEN M JOSUÉ Not Available Start: 11-30-2023 End: 11-30-2023 ambulatory RUGEN M JOSUÉ Not Available Start: 11-12-2023 End: 11-12-2023 ambulatory RUGEN M JOSUÉ Not Available Start: 08-03-2023 End: 08-03-2023 ambulatory RUGEN M JOSUÉ Not Available Start: 07-16-2023 End: 07-16-2023 ambulatory NANCY MONTEIRO Not Available Start: 08-09-2022 End: 08-09-2022 ambulatory Roselyn Weathers Other [facility] Other Start: 08-09-2022 Office outpatient ne w 30 minutes Roselyn Weathers [facility] [place] Start: 07-17-2022 End: 07-18-[address] ADRIANO CORONA Facility:[facility] Start: 06-06-2022 End: 06-07-[address] ADRIANO CORONA Facility:[facility] Start: 09-12-2021 End: 09-13-[address] ADRIANO CORONA Facility:[facility] Start: 09-05-2021 End: 09-06-[address] STEVEN GROVE Facility:[facility] Start: 09-28-2018 End: 09-28-2018 Patient encounter procedure Olga Hayes Facility:[facility] Procedures Date Procedure Procedure Detail Performing Clinician Start: 05-24-2024 End: 05-24-2024 Oph bmtry prtl coher intrfrmtry io lens pwr carlton Juan M Tyler DO Work Phone: Plan of Treatment Date Care Activity Detail Author Start: 09-19-2024 End: 09-19-2024 Patient encounter procedure 09/19/2024 1:00 PM EST Office Visit [facility] [address] [place] [address] Lana Moses MD [address] [facility] [address] [place] [address] [facility] Start: 07-31-2024 Pneumococcal Vaccine : 65+ Years (2 of 2 - PCV) Pneumococcal Vaccine: 65+ Years (2 of 2 - PCV) [facility] Comment on above: Postponed from 05/07 (Other Patient Reasons) Start: 07-16-2024 Medicare Annual Well ness (AWV) Medicare Annual Wellness (AWV) [facility] Start: 07-01-2024 End: 07-01-2024 Patient encounter procedure 07/01/2024 8:30 AM EST Office Visit [facility] [address] [place] [phone] Juan M Tyler, DO [address] [place] [address] [facility] Start: 06-03-2024 End: 06-03-2024 Patient encounter procedure 06/03/2024 8:15 AM EST Office Visit [facility] [address] [place] [phone] Juan M Tyler, DO [address] [place] [address] [facility] Start: 05-24-2024 End: 05-24-2024 Patient encounter procedure 05/24/2024 2:15 PM EDT Office Visit [facility] [address] [place] [phone] Juan M Tyler, DO [address] [place] [address] Arrived [facility] Comment on above: Arrived Immunizations Immunization Date Immunization Notes Care Provider Fa cility 05-11-2023 Influenza, High-dose Seasonal, Quadrivalent, Preservative Free Juan M Zahler DO Work Phone: [facility] 12-20-2022 zoster vaccine recombinant J onbrayden Carrollhldenys DO Work Phone: [facility] 10-19-2022 zoster vaccine recombinant J onbrayden Carrollhldenys DO Work Phone: [facility] 03-14-2022 Influenza, Seasonal, Quadrivalent, Adjuvanted Juan M Zahler DO Work Phone: [facility] 04-11-2021 Influenza, High-dose Seasonal, Quadrivalent, Preservative Free Juan M Zahler DO Work Phone: [facility] 03-23-2020 influenza, injectabl e, quadrivalent, preservative free Juan M Zahler DO Work Phone: [facility] 05-07-2019 pneumococcal polysaccharide vaccine, 23 valent Juan M Zahler DO Work Phone: [facility] 05-07-2019 Seasonal trivalent influenza vaccine, adjuvanted, preservative free Juan M Zahler DO Work Phone: [facility] 04-20-2013 influenza virus vacc ine, whole virus Juan M Zahler DO Work Phone: [facility] 04-27-2012 influenza virus vacc ine, whole virus Juan M Zahler DO Work Phone: [facility] 04-23-2011 influenza virus vacc ine, whole virus Juan M Zahler DO Work Phone: [facility] 05-02-2009 influenza virus vacc ine, whole virus Juan M Zahler DO Work Phone: [facility] Payers Date Payer Category Payer Self-pay 2018 Unknown [id number] 2018 Private Health Insurance [facility] [id number] 5 2005 Medicare MEDICARE [id number] 5 1959 Medicare [id number] 1959 Unknown [id number] 1940 Unknown [id number] .2.593 1940 Unknown [id number] [id number] .2.593 1940 Unknown [id number] [id number] .2.593 1940 Unknown [id number] 2.16840.1.765877.3.579 .2.593 1940 Unknown [id number] [id number] .2.1259 1940 Unknown [id number] [id number] .2.1259 1940 Unknown [id number] [id number] .2.1259 1940 Unknown [id number] [id number] .2.1259 1940 Unknown [id number] 2.16.840.1.862203.3.579 .2.9 1940 Unknown [id number] [id number] .2.1259 1940 Unknown [id number] 2.16.840.1.495079.3.579 .2.1258 1940 Unknown [id number] [id number] .2.1259 1940 Unknown [id number] [id number] .2.1259 Unknown [id number] [id number] .2.531 Social History Date Type Detail Facility Start: 07-16-2023 End: 03-14-2024 Sex Assigned At [facility] Other Start: 07-16-2023 Tobacco smoking stat [facility] Never smoked tobacco [facility] Start: 07-16-2023 Tobacco use and exposure Smokeless tobacco non-user [facility] Start: 03-14-2024 End: 05-24-2024 Alcoholic beverage intake Defer [facility] Start: 07-16-2023 End: 03-14-2024 History of Social function [facility] Start: 1940 Sex assigned at Not on file N [facility] Optical coherence tomography study report 05-24-2024 Note Date & Type Note Facility 05-24-2024 Note Right Eye Quality was good. Scan locations included subfoveal. Progression has been stable. Findings include normal observations. Left Eye Quality was good. Scan locations included subfoveal. Progression has been stable. Findings include normal observations. Notes Good scan with normal appearance [facility] History of Present illness Narrative 05-24-2024 Juan M Tyler DO - 05/24/2024 2:15 PM EDT Note Date & Type Note Facility 05-24-2024 History of Presen t illness Narrative Images from the original note were not included. Assessment/Plan Diagnoses and all orders for this visit: Age-related nuclear cataract of both eyes - Visually Significant Cataract, OU: I discussed the risks, benefits, alternatives, and expectations of cataract surgery. A complete ophthalmic exam was performed and it was determined that the cataracts were a primary source of vision decline, affecting activities of daily living, necessitating removal. Limited vision post-surgery may occur with pre-existing conditions affecting other areas of the eye or the brain was explained and the patient displayed an understanding. The overall objective is to improve ADLs, not eliminate glasses or restore vision to 20/20. Tests were reviewed - the different lens options were explained including the [id number] fees for any upgrades. Intraocular lens (IOL) selection may be altered either prior to or during the procedure based on the doctor's discretion including reverting to a traditional intraocular lens (IOL). They understood that there will exist the potential of glasses prescription need post surgery for near, distance or possibly both. The patient stated a full understanding and a desire to proceed with the procedure. The patient received cataract measurements and had any additional questions answered. - A complete exam was performed including a physical exam: General: AAOx3 and NAD, Lungs: Clear, Heart: RRR, Abdomen: S/NT/ND, Extremities: no pitting edema. Primary open angle glaucoma (POAG) of both eyes, mild stage (CMS/HCC) - Primary open angle glaucoma OU - Importance of taking medications as prescribed was stressed. Patient was advised to report any inability or unwillingness to take medications or if cost is a concern. Patient must report any side effects that may develop. Patient must report any change in systemic medications as they may interact or interfere with their glaucoma medications. Patient will be dilated at least on an annual basis for optic nerve evaluation and will likely have an automated visual field examination at least once a year. It was explained to the patient that they might require additional treatment for intraocular pressure control such as laser therapy or surgical intervention - Cont Latanoprost both eyes (OU) at bedtime. - The patient demonstrates mild to moderate severity of open angle glaucoma as well as a visually significant cataract(s). They are also currenlty treated with ocular - hypotensive medication. In conjunction with the planned cataract removal, it has been recommended that they receive a Hydrus Stent insertion to better control/stabilize their sight threatening condition. R/B/A/E provided for the procedures listed above. This is deemed medically necessary due to their poor compliance and concern with progression of disease. They also state that their topical medication creates side effects that forces them to remain poorly compliant. Early dry stage nonexudative age-related macular degeneration of both eyes - ARMD OU, dry. Importance of smoking cessation, blood pressure control, and healthy diet were emphasized. Patient was advised to consider ultraviolet-B blocking sunglasses. In accordance with the AREDS study, appropriate antioxidant and mineral supplements were prescribed. Patient was instructed to self monitor their monocular vision (reading/Amsler Grid) at least weekly. Patient should immediately report any new onset of decreased vision or metamorphopsia. Dry eyes - Dry Eyes OU -- Environmental changes to minimize dryness and exposure and the use of artificial tears were recommended. Blepharitis of upper and lower eyelids of both eyes, unspecified type - Blepharitis, posterior type OU - The patient exhibits inspissated meibomian glands. Warm compresses, lid massage and lid scrubs were recommended. documented in this encounter [facility] Evaluation note 08-09-2022 Note Date & Type [...] kidney issues involved, this is not clear. [facility] Other Evaluation note Note Date & Type Note Facility Evaluation note Diagnosis Bilateral impacted cerumen- Primary Impacted cerumen Secondary hypertension (CMS/HCC) Other secondary hypertension, unspecified Secondary hypertension (CMS/HCC) Other secondary hypertension, unspecified Secondary hypertension (CMS/HCC)- Primary Other secondary hypertension, unspecified Secondary hypertension (CMS/HCC)- Primary Other secondary hypertension, unspecified Primary hypertension (CMS/HCC) Unspecified essential hypertension Age-related nuclear cataract of both eyes- Primary Primary open angle glaucoma (POAG) of both eyes, mild stage (CMS/HCC) Early dry stage nonexudative age-related macular degeneration of both eyes Dry eyes Unspecified tear film insufficiency Blepharitis of upper and lower eyelids of both eyes, unspecified type documented in this encounter [facility] History general Narrative - Reported Note Date & Type Note Facility History general Narrative - Reported Type Medical History Secondary hypertension Surgical History appendectomy Hospitalization History see above Hospitalization History child births x 4 [employer] Other Summary Purpose Family History No Family History Records FoundNo Family History Records FoundNo Family History Records Found Advance Directives No Advanced Directives Records FoundNo Advanced Directives Records FoundNo Advanced Directives Records Found Additional Source Comments INFORMATION SOURCE (unrecogn ized section and content) DATE CREATED AUTHOR 09/30/2018 [facility] DATE CREATED AUTHOR AUTHOR'S ORGANIZ ATION 07/24/2022 [facility] DATE CREATED AUTHOR AUTHOR'S ORGANIZ ATION 05/26/2024 [facility] dical Specialists EPIC REASON FOR VISIT (unrecogniz ed section and content) Reason Comments Follow-up Cataract Care Teams (unrecognized sec tion and content) Director Drug Safety Relationship Specialty Start Date End Date Unallocated, Floridalma Ham MD [address] [place] [address] PCP - General 04/16/23 Director Drug Safety Relationship Specialty Start Date End Date Unallocated, Floridalma Ham MD [address] [place] [address] PCP - General 04/16/23 FOR RECORDS PERTAINING TO PATIENTS WHO ARE [...] BE BASED ON THE PRIMARY CLINICAL RECORDS. [employer] provides no warranty or guarantee of the accuracy or completeness of information in this document.
[2024-06-02] MEDS: CYCLOPENTOLATE HCL 1% OP SOL 40 DROP/2 ML BOTTLE OP ×4 (08:08→08:37)
[2024-06-02] MEDS: DIAZEPAM 5 MG TABLET PO (08:08)
[2024-06-02] MEDS: TROPICAMIDE 1% OP SOL 300 DROP/15 ML BOTTLE OP ×4 (08:09→08:37)
[2024-06-02] MEDS: PHENYLEPHRINE HCL 2.5% OP SOL 40 DROP/2 ML BOTTLE OP ×4 (08:09→08:37)
[2024-06-02] MEDS: BESIFLOXACIN HCL 100 DROP DROPS.SUSP OP ×4 (08:09→08:38)
[2024-06-02 08:17] VITALS: BP 157/75; PULSE 75; TEMP 36.7; O2SAT 98
[2024-06-02] MEDS: LIDOCAINE 2% JELLY 10 ML TOPICAL (09:43)
[2024-06-02] MEDS: PROPARACAINE HCL 0.5% 300 DROP/15 ML BOTTLE OP (09:44)
[2024-06-02] MEDS: BETADINE POVIDONE-IODINE 5% OP SOL 30 ML BOTTLE OP (09:44)
[2024-06-02 09:53] VITALS: BP 129/83; BP 135/71; PULSE 60; PULSE 64; O2SAT 98
[2024-06-02] MEDS: HYALURONATE SODIUM 16 MG/ML SYRINGE OP (09:54)
[2024-06-02] MEDS: PHENYLEPHRINE/KETOROLAC 1-0.3% ML VIAL 4 ML IRR (09:54)
[2024-06-02] MEDS: TETRACAINE HCL 0.5% OP SOL 80 DROP/4 ML BOTTLE OP (09:55)
[2024-06-02] MEDS: CEFUROXIME SODIUM 750 MG, 0.9 % SODIUM CHLORIDE 16.3 ML OP (09:55)
[2024-06-02] MEDS: LIDOCAINE HCL 1% PF 20 MG/2 ML VIAL INJ (09:55)
[2024-06-02] MEDS: APRACLONIDINE HCL 0.5% SOL 100 DROP/5 ML BOTTLE OP (10:07)
[2024-06-02] MEDS: PREDNISOLONE ACETATE OP 1% SUSP 100 DROPS/5 ML 1 DROP OP (10:07)
[2024-06-02] MEDS: HYALURONATE SODIUM 23 MG/ML SYRINGE INTRAOCULA (10:11)
== END 2024-06-02 10:38 | disposition home or self-care (01) ==
LOC: SURGOUT 07:44
PROVIDERS: PCP Family Medicine; Visit Provider Ophthalmology
PROC: (CPT 66991; principal; 2024-06-02 09:20)
DX: H25.12 Age-related nuclear cataract, left eye (principal); H40.1121 Primary open-angle glaucoma, left eye, mild stage
CPT/HCPCS: 66991; C1783; J0697; V2630

== ENCOUNTER 2024-06-28 14:14 | Outpatient (OUT) | payer MEDICARE, OTHER, SELFPAY | END 2024-06-28 14:15 | disposition home or self-care (01) | LOC: PST 14:14 | PROVIDERS: PCP Family Medicine; Visit Provider Ophthalmology | DX: Z01.818 Encounter for other preprocedural examination (principal); H25.811 Combined forms of age-related cataract, right eye; H40.1131 Primary open-angle glaucoma, bilateral, mild stage ==

== ENCOUNTER 2024-06-30 06:40 | Day surgery (SDC) | payer MEDICARE, OTHER, SELFPAY ==
--- NOTE | 2024-06-30 | HP_ITS ---
PREOPERATIVE HISTORY AND PHYSICAL ? Date:? 06/29/2024 ? HISTORY:? The patient is a 84-year-old female with complaints of declining vision out of her right eye.? Generally, she states this has been gradual over the last 3-5 years, affecting her distance and near vision.? She has difficulty seeing the TV guide on the TV and states at night time headlights create glare and halos.? Additionally, she carries the diagnosis of primary open angle glaucoma and is concerned about the advancement of this condition.? She has a sister that has gone blind in one eye from it, and she does not feel that she remains as compliant as she needs to be.? ? PAST OCULAR HISTORY / PAST MEDICAL HISTORY / SOCIAL HISTORY / MEDICATIONS / ALLERGIES TO MEDICATIONS / REVIEW OF SYSTEMS / PHYSICAL EXAMINATION:? Unchanged from previously dictated. ? ASSESSMENT AND PLAN:? 1.? Visually significant cataract, right eye.? After the risks, benefits, alternatives as well as expectations were delivered to the patient, she elected to go forward with cataract removal.? She understands the risks to include but not limited to infection, bleeding, loss of vision or loss of the eye itself.? Secondly, she understands that postoperatively she is likely to require spectacle correction for her best visual acuity.? Finally, a complete ophthalmic exam was performed and there was not determined to be any other source of vision decline other than that of cataract.? ? 2.? Primary open angle glaucoma, mild severity.? After the risks, benefits, alternatives as well as expectations were delivered to the patient, she elected to go forward with a Hydrus stent insertion.? This will be performed at the time of the cataract removal process.? She understands the risks included with this are those listed for the cataract removal process, but also intraocular bleeding, increased pressure and that does not guarantee the possible advancement of progression of glaucoma, or the actual application of the stent due to anatomical differences.? ?After understanding all risks as well as expectations, she elected to go forward with the procedures as listed above and will be doing so in the near future. LLOYD
--- NOTE | 2024-06-30 | OP_ITS ---
OPERATION DATE: 06/30/2024 SURGEON: Minh Tyler M.D. PREOPERATIVE DIAGNOSIS: 1. Nuclear sclerotic cataract right eye. 2. Primary open angle glaucoma, mild severity, right eye. POSTOPERATIVE DIAGNOSIS: 1. Nuclear sclerotic cataract right eye. 2. Primary open angle glaucoma, mild severity, right eye. PROCEDURE NAME: 1. Cataract extraction with intraocular lens placement for the right eye. 2. Hydrus stent insertion right eye. ANESTHESIA: Topical ESTIMATED BLOOD LOSS: Zero. COMPLICATIONS: None. PROCEDURE: The patient was brought to the Operating Room in supine position. After proper identification, the right eye was prepped and draped in a sterile ophthalmic fashion. A paracentesis created at the 10 o'clock position. Approximately 1 cc of unpreserved Xylocaine was injected into the anterior chamber followed by Amvisc Plus. Using a 2.6 mm Keratome blade, a clear corneal incision was created at the 7 o'clock limbus. A cystotome was then used to begin a curvilinear capsulorrhexis that was continued for 360 degrees with the Utrata forceps. BSS on a 26 gauge cannula was injected beneath the anterior capsule to hydrodissect as well as hydrodelineate the lens. After ensuring mobility, phacoemulsification was performed in a [id number]-type fashion. After all nuclear material had been removed from the eye, IA was introduced and all residual cortical material was cleaned up. Additional Amvisc Plus was injected into the posterior bag and a lens model MX60, 22.0 diopters was injected and dialed into position. After ensuring centration, steps were taken to move on to the glaucoma stenting procedure. Patient?s head was rotated away from the surgeon, approximately 20 degrees, with the operating microscope rotated toward the surgeon at approximately 20 degrees. Amvisc Plus was placed on the surface of the gonioprism that was placed on the surface of the eye, and visualization could be achieved of the trabecular meshwork at the 3 o?clock location. The Hydrus stent was called for and primed and inserted through the temporal wound with good visualization as it transitted across the anterior chamber. Reaching the trabecular meshwork, at the 3 o?clock location, the tip of the plumbing instructor was used to dissect this tissue, accessing Schlemm?s canal. Once accessed, the stent was deployed with all windows seen moving into the canal. The device was used to manipulate the remainder of it to push it into place, and after checking for proper location and stabilization, the plumbing instructor as well as the gonioprism were removed from the eye, and the patient?s head was rotated back to more neutral cataract removal position, as well as the microscope. IA was reintroduced into the anterior chamber and all residual Amvisc Plus was removed from the eye. BSS on a 30 gauge cannula was then injected into the stroma of both the clear corneal incision as well as paracentesis to hydrate the wounds. Additional BSS was injected into the anterior chamber to pressurize the eye at approximately 20 to 22 mmHg by finger tension. 0.1 cc of antibiotic was injected into the anterior chamber. Weck-Hellen sponges were used to check the wounds to be watertight. One drop of apraclonidine and one drop of prednisolone acetate were placed into the eye and a shield was placed over top. The patient was sent to the postoperative area in satisfactory condition to follow up the following day for postoperative care. LLOYD
--- OUTSIDE RECORDS SUMMARY | 2024-06-30 06:43 | XMS_ITS | CCD ---
Author Organization [facility] Care Team Providers Care Mobile Application Engineer Name Role Phone Olga Hayes Primary Care Unavailable Rush Desai Attending Unavailable Rush Desai Admitting Unavailable OROVILLE, DR STEVEN Scruggs Admitting Unavailable BOKCHITO, DR OH Primary Care Unavailable OROVILLE, DR STEVEN Scruggs Attending Unavailable OROVILLE, DR STEVEN Scruggs Consulting Unavailable BOKCHITO, DR OH Attending Unavailable BOKCHITO, DR OH Consulting Unavailable BOKCHITO, DR OH Primary Care Unavailable BOKCHITO, DR OH Admitting Unavailable BOKCHITO, DR OH Attending Unavailable BOKCHITO, DR OH Primary Care Unavailable BOKCHITO, DR OH Admitting Unavailable OROVILLE, DR STEVEN Scruggs Consulting Unavailable BOKCHITO, DR OH Consulting Unavailable BOKCHITO, DR OH Primary Care Unavailable OROVILLE, DR STEVEN Scruggs Admitting Unavailable MAINE, DR STEVEN Scruggs Attending Unavailable MAINE, DR STEVEN Scruggs Consulting Unavailable MATILDA, DR RITESH Goldstein Consulting Unavailable Roselyn Weathers Unavailable Unallocated , Noms Provider Primary Care Provi nathan LANA MOSES Attending Unavailable LANA MOSES Attending Unavailable LANA MOSES Attending Unavailable LANA MOSES Attending Unavailable NANCY MONTEIRO Attending Unavailable JUAN M TYLER Attending Unavailable NANCY MONTEIRO Attending Unavailable LANA MOSES Attending Unavailable JUAN M TYLER Attending Unavailable JUAN M TYLER Attending Unavailable JUAN M TYLER Attending Unavailable Medications Current Medications Medication Drug Class(es) Dates Sig (Normalized) Sig (Original) amLODIPine 5 mg oral tablet (10 sources) Dihydropyridine Calcium Channel Trev Start: 11-12-2023 End: 11-11-2024 take 1 tablet by mouth once daily amLODIPine (Norvasc) 5 MG tablet Indications: Secondary hypertension (CMS/HCC) Take 1 tablet (5 mg) by mouth Daily 30 tablet 11 11/12/2023 11/11/2024 Active diclofenac sodium 0.01 mg/mg topical gel (2 sources) Nonsteroidal Anti-inflammatory Drug Start: 06-28-2024 diclofenac sodium (Voltaren Arthritis Pain) 1 % gel Indications: Primary osteoarthritis of right wrist Apply 2 g topically 4 (four) times a day as needed for pain 50 g 2 06/28/2024 Active Start: 06-28-2024 diclofenac sod ium (Voltaren Arthritis Pain) 1 % gel Indications: Primary osteoarthritis of right wrist Apply 2 g topically 4 (four) times a day as needed for pain 50 g 2 06/28/2024 Active dorzolamide 20 mg/ml / timolol 5 mg/ml ophthalmic solution (11 sources) Carbonic Anhydrase Inhibitor, beta-Adrenergic Trev Start: 02-22-2024 End: 06-17-2025 take 1 drop(s) into the eye(s) in the morning dorzolamide-timolol (Cosopt) 2-0.5 % ophthalmic solution Indications: Primary open angle glaucoma (POAG) of both eyes, mild stage (CMS/HCC) ADMINISTER 1 DROP INTO BOTH EYES IN THE MORNING AND 1 DROP BEFORE BEDTIME. 30 mL 1 06/17/2024 06/17/2025 Active doxycycline monohydrate 100 mg oral capsule (1 source) Tetracycline-class Drug Start: 08-09-2022 take 1 capsule by mouth every twelve hours Doxycycline Monohydrate 100 MG 1 capsule Orally every 12 hrs for 7 days Jul, Active hydroCHLOROthiazide 25 mg oral tablet (10 sources) Thiazide Diuretic Start: 11-12-2023 End: 11-11-2024 take 1 tablet by mouth once daily hydroCHLOROthiazide (HYDRODiuril) 25 MG tablet Indications: Secondary hypertension (CMS/HCC) Take 1 tablet (25 mg) by mouth Daily 100 tablet 3 11/12/2023 11/11/2024 Active ketorolac tromethamine 5 mg/ml ophthalmic solution (11 sources) Nonsteroidal Anti-inflammatory Drug, Cyclooxygenase Inhibitor Start: 05-24-2024 End: 07-27-2024 take 1 drop(s) into the eye(s) in the morning ketorolac (Acular) 0.5 % ophthalmic solution Indications: Age-related nuclear cataract of both eyes Administer 1 drop into affected eye(s) in the morning and 1 drop before bedtime. 5 mL 06/27/2024 07/27/2024 Active latanoprost 0.05 mg/ml ophthalmic solution (10 sources) Prostaglandin Analog Start: 02-22-2024 End: 02-21-2025 take 1 drop(s) into the eye(s) at bedtime latanoprost (Xalatan) 0.005 % ophthalmic solution Indications: Primary open angle glaucoma (POAG) of both eyes, mild stage (CMS/HCC) Administer 1 drop into both eyes at bedtime 2.5 mL 6 02/22/2024 02/21/2025 Active lisinopril 40 mg oral tablet (11 sources) Angiotensin Converting Enzyme Inhibitor Start: 08-03-2023 take 1 tablet by mouth in the [...] (1 source) RNA Synthetase Inhibitor Antibacterial Start: 3 Mupirocin 2 % 1 application with Qtip to affected area Externally 2 times a day for 7 days Jul, Active ofloxacin 3 mg/ml ophthalmic solution (4 sources) Quinolone Antimicrobial Start: 4 End: take 1 drop(s) into the eye(s) five times daily ofloxacin (Ocuflox) 0.3 % ophthalmic solution Indications: Age-related nuclear cataract of both eyes Administer 1 drop into affected eye(s) 5 (five) times a day for 1 day Starting 1 day before surgery, continue after surgery as directed 5 mL 06/27/2024 06/28/2024 Active Start: 05-24-2024 End: 05-25-2024 take 1 drop(s) into the eye(s) five times daily ofloxacin (Ocuflox) 0.3 % ophthalmic solution Indications: Age-related nuclear cataract of both eyes Administer 1 drop into affected eye(s) 5 (five) times a day for 1 day Starting 1 day before surgery, continue after surgery as directed 5 mL 1 05/24/2024 05/25/2024 Active prednisoLONE acetate 10 mg/ml ophthalmic suspension (6 sources) Corticosteroid Start: 06-27-2024 End: 07-11-2024 prednisoLONE acetate (Pred-Forte) 1 % ophthalmic suspension Indications: Age-related nuclear cataract of both eyes Administer 1 drop into affected eye(s) in the morning and 1 drop at noon and 1 drop in the evening and 1 drop before bedtime. Do all this for 14 days. 5 mL 06/27/2024 07/11/2024 Active Start: 05-24-2024 End: 06-07-2024 prednisoLONE acetate (Pred-F orte) 1 % ophthalmic suspension Indications: Age-related nuclear cataract of both eyes Administer 1 drop into affected eye(s) in the morning and 1 drop at noon and 1 drop in the evening and 1 drop before bedtime. Do all this for 14 days. 5 mL 1 05/24/2024 06/07/2024 Active Problems Active Problems Problem Classification Problem Date Documented Date Episodic/Chronic Cataract (20 sources) Bilateral age-related nuclear cataracts; Translations: [Age-related nuclear cataract, bilateral] Onset: 3 Resolved: 4 03-06-2023 Chronic Chronic kidney disease (1 source) Chronic kidney disease stage 3; Translations: [Chronic kidney disease, stage 3 (moderate)] Chronic Essential hypertension (16 sources) Essential (primary) hypertension; Translations: [Essential hypertension] Onset: 2 Chronic Glaucoma (13 sources) Primary open angle glaucoma; Translations: [Primary open-angle glaucoma, bilateral, mild stage] Onset: 3 03-06-2023 Chronic Hypertension with complications and secondary hypertension (11 sources) Hypertensive renal disease; Translations: [Hypertensive chronic kidney disease with stage 1 through stage 4 chronic kidney disease, or unspecified chronic kidney disease] Onset: 4 08-03-2023 Chronic Osteoarthritis (2 sources) Osteoarthritis of joint of right wrist; Translations: [Primary osteoarthritis, right wrist] 06-28-2024 Chronic Other circulatory disease (1 source) Elevated blood-pressure reading, without diagnosis of hypertension Episodic Other diseases of kidney and ureters (1 source) Secondary hyperparathyroidism; Translations: [Secondary hyperparathyroidism of renal origin] Chronic Other non-traumatic joint disorders (2 sources) Pain of right wrist; Translations: [Pain in right wrist] 06-28-2024 Episodic Other screening for suspected conditions (not mental disorders or infectious disease) (4 sources) Encounter for screening mammogram for malignant neoplasm of breast; Translations: [ENC SCR MAMMO MALIG NEOPLASM BREAST] Onset: 2 Episodic Retinal detachments; defects; vascular occlusion; and retinopathy (11 sources) Nonexudative age-related macular degeneration; Translations: [Nonexudative age-related macular degeneration, bilateral, early dry stage] Onset: 3 03-06-2023 Chronic Skin and subcutaneous tissue infections (1 source) Cellulitis of other sites Episodic Past or Other Problems Problem Classification Problem Date Documented Da te Episodic/Chronic Inflammation; infection of eye (except that caused by tuberculosis or sexually transmitteddisease) (11 sources) Blepharitis of upper and lower eyelids of bilateral eyes; Translations: [Unspecified blepharitis right eye, upper and lower eyelids] Onset: 03-06-2023 03-06-2023 Episodic Other ear and sense organ disorders (10 sources) Impacted cerumen of bilateral ears; Translations: [Impacted cerumen, bilateral] Onset: 08-03-2023 08-03-2023 Episodic Other eye disorders (11 sources) Dry eyes; Translations: [Dry eye syndrome of bilateral lacrimal glands] Onset: 03-06-2023 03-06-2023 Episodic Varicose veins of lower extremity (4 sources) Varicose veins of bilateral lower extremities with pain; Translations: [VARICOSE VNS CHANG LOW EXTREM W/PAIN] Onset: 09-12-2021 Episodic Results Test Name Value Interpretation Reference Range Facility Ophthalmic OCT panelon 05-24 [facility] Right Eye Images reviewed and comparison made [...] right eye (OD). Stable. Both eyes (OU). [facility] [employer] Radiology Study observation (narrative) [facility] Optical coherence tomography study reporton 05-24-2024 [facility] Study observation (narrative) [facility] US Eye+Orbit - bilateralon 1 Diagnosis: Cataract both eyes (OU) Testing Indication: Performed for preop measurements in the determination of an intraocular lens (IOL) for both eyes (OU) Test Reliability: Good quality both eyes (OU) Interpretation: Good measurements for intraocular lens (IOL) calculation purposes. Calculation made for both eyes (OU). [facility] Radiology Study observation (narrative) [facility] CBC AUTO DIFFon 07-17-2022 BASO # 0.0 103/ul Normal 0.0-0.1 [facility] Comment on above: Performed By: #### C BC #### [facility] [address] [place] [address] Dr. Kassie Cheng Basophils/100 WBC (Bld) 0.3 % Normal 0.2-2.0 [facility] Comment on above: Performed By: #### C BC #### [facility] [address] [address] [address] Kassie Cheng EO # 0.0 103/ul Normal 0.0-0.7 [facility] Comment on above: Performed By: #### C BC #### [facility] [address] [address] [address] Kassie Cheng Eosinophils/100 WBC (Bld) 0.7 % Critically low 0.9-7.0 [facility] Comment on above: Performed By: #### C BC #### [facility] [address] [address] [address] Kassie Cheng Erythrocyte distribution width (RBC) [Ratio] 13.9 % Normal 11.0-15.0 [facility] Comment on above: Performed By: #### C BC #### [facility] [address] [place] [address] Dr. Kassie Cheng Hematocrit (Bld) [Volume fraction] 40.6 % Normal 36.0-48.0 [facility] Comment on above: Performed By: #### C BC #### [facility] [address] [address] [address] Kassie Cheng Hemoglobin (Bld) [Mass/Vol] 13.2 g/dL Normal 12.0-16.0 [facility] Comment on above: Performed By: #### C BC #### [facility] [address] [place] [address] Dr. Kassie Cheng IG # 0.01 10e3/ul Normal 0.00-0.03 [facility] Comment on above: Performed By: #### C BC #### [facility] [address] [place] [address] Dr. Kassie Cheng IG % 0.2 % Normal 0.0-0.5 [facility] Comment on above: Performed By: #### C BC #### [facility] [address] [place] [address] Dr. Kassie Cheng LYMPH # 1.2 103/ul Normal 1.2-3.8 [facility] Comment on above: Performed By: #### C BC #### [facility] [address] [place] [address] Dr. Kassie Cheng Lymphocytes/100 WBC (Bld) 20.0 % Critically low 20.5-60.0 [facility] Comment on above: Performed By: #### C BC #### [facility] [address] [place] [address] Dr. Kassie Cheng MANUAL DIFF REQ NO Normal [facility] Comment on above: Performed By: #### C BC #### [facility] [address] [place] [address] Dr. Kassie Cheng MCH (RBC) [Entitic mass] 27.7 pg Normal 26.7-34.0 [facility] Comment on above: Performed By: #### C BC #### [facility] [address] [place] [address] Dr. Kassie Cheng MCHC (RBC) [Mass/Vol] 32.5 g/dL Normal 29.9-35.2 [facility] Comment on above: Performed By: #### C BC #### [facility] [address] [place] [address] Dr. Kassie Cheng MCV (RBC) [Entitic vol] 85.1 fL Normal 81.0-99.0 [facility] Comment on above: Performed By: #### C BC #### [facility] [address] [place] [address] Dr. Kassie Cheng MONO # 0.3 103/ul Normal 0.3-0.8 [facility] Comment on above: Performed By: #### C BC #### [facility] [address] [place] [address] Dr. Kassie Cheng Monocytes/100 WBC (Bld) 5.2 % Normal 1.7-12.0 [facility] Comment on above: Performed By: #### C BC #### [facility] [address] [place] [address] Dr. Kassie Cheng NEUT # 4.4 103/ul Normal 1.4-6.5 [facility] Comment on above: Performed By: #### C BC #### [facility] [address] [place] [address] Dr. Kassie Cheng Neutrophils/100 WBC (Bld) 73.6 % Normal 43.0-75.0 [facility] Comment on above: Performed By: #### C BC #### [facility] [address] [place] [address] Dr. Kassie Cheng Platelet mean volume (Bld) [Entitic vol] 10.4 fL Normal 9.5-13.5 [facility] Comment on above: Performed By: #### C BC #### [facility] [address] [place] [address] Dr. Kassie Cheng PLT 212 103/ul Normal 150-450 [facility] Comment on above: Performed By: #### C BC #### [facility] [address] [place] [address] Dr. Kassie Cheng RBC 4.77 106/ul Normal 4.20-5.40 [facility] Comment on above: Performed By: #### C BC #### [facility] [address] [place] [address] Dr. Kassie Cheng WBC 5.9 103/ul Normal 4.0-11.0 [facility] Comment on above: Performed By: #### C BC #### [facility] [address] [address] [address] Kassie Cheng PROF 14(COMP METB)on 022 Albumin [Mass/Vol] 4.0 g/dL Normal 3.4-5.0 [facility] Comment on above: Performed By: #### C MP, T4, TSH #### [facility] [address] [address] [address] Kassie Cheng Albumin/Globulin [Mass ratio] 1.0 {ratio} Normal [facility] Comment on above: Performed By: #### C MP, T4, TSH #### [facility] [address] [address] [address] Kassie Cheng ALP [Catalytic activity/Vol] 75 U/L Normal 46-116 [facility] Comment on above: Performed By: #### C MP, T4, TSH #### [facility] [address] [place] [address] Dr. Kassie Cheng ALT [Catalytic activity/Vol] 22 U/L Normal 14-59 [facility] Comment on above: Performed By: #### C MP, T4, TSH #### [facility] [address] [address] [address] Kassie Cheng Anion gap [Moles/Vol] 14.3 mmol/L Normal [facility] Comment on above: Performed By: #### C MP, T4, TSH #### [facility] [address] [address] [address] Kassie Cheng AST [Catalytic activity/Vol] 21 U/L Normal 15-37 [facility] Comment on above: Performed By: #### C MP, T4, TSH #### [facility] [address] [address] [address] Kassie Cheng Bilirubin [Mass/Vol] 0.5 mg/dL Normal 0.2-1.0 [facility] Comment on above: Performed By: #### C MP, T4, TSH #### [facility] [address] [address] [address] Kassie Cheng Calcium [Mass/Vol] 9.5 mg/dL Normal 8.5-10.1 [facility] Comment on above: Performed By: #### C MP, T4, TSH #### [facility] [address] [address] [address] Kassie Cheng Chloride [Moles/Vol] 100 mmol/L Normal 98-107 [facility] Comment on above: Performed By: #### C MP, T4, TSH #### [facility] [address] [address] [address] Kassie Cheng CO2 [Moles/Vol] 29.5 mmol/L Normal 21.0-32.0 [facility] Comment on above: Performed By: #### C MP, T4, TSH #### [facility] [address] [address] [address] Kassie Cheng Creatinine [Mass/Vol] 0.99 mg/dL Normal 0.55-1.02 [facility] Comment on above: Performed By: #### C MP, T4, TSH #### [facility] [address] [address] [address] Kassie Cheng EGFR-AF BELGIAN >60 Normal >=60 [facility] Comment on above: Performed By: #### C MP, T4, TSH #### [facility] [address] [address] [address] Kassie Cheng EGFR-NON AF BELGIAN 54 mL/min/1.73m2 Critically low >=60 [facility] Comment on above: Performed By: #### C MP, T4, TSH #### [facility] [address] [address] [address] Kassie Cheng Globulin (S) [Mass/Vol] 3.9 g/dL Normal [facility] Comment on above: Performed By: #### C MP, T4, TSH #### [facility] [address] [address] [address] Kassie Cheng Glucose [Mass/Vol] 101 mg/dL Normal 74-106 [facility] Comment on above: Performed By: #### C MP, T4, TSH #### [facility] [address] [address] [address] Kassie Cheng Potassium [Moles/Vol] 3.8 mmol/L Normal 3.5-5.1 [facility] Comment on above: Performed By: #### C MP, T4, TSH #### [facility] [address] [place] [address] Dr. Kassie Cheng Protein [Mass/Vol] 7.9 g/dL Normal 6.4-8.2 [facility] Comment on above: Performed By: #### C MP, T4, TSH #### [facility] [address] [place] [address] Dr. Kassie Cheng Sodium [Moles/Vol] 140 mmol/L Normal 136-145 [facility] Comment on above: Performed By: #### C MP, T4, TSH #### [facility] [address] [place] [address] Dr. Kassie Cheng Urea nitrogen [Mass/Vol] 17.0 mg/dL Normal 7.0-18.0 [facility] Comment on above: Performed By: #### C MP, T4, TSH #### [facility] [address] [place] [address] Dr. Kassie Cheng Urea nitrogen/Creatinine [Mass ratio] 17.2 mg/mg Normal [facility] Comment on above: Performed By: #### C MP, T4, TSH #### [facility] [address] [place] [address] Dr. Kassie Cheng T4on 07-17-2022 T4 [Mass/Vol] 9.40 ug/dL Normal 4.80-13.90 [facility] Comment on above: Performed By: #### C MP, T4, TSH #### [facility] [address] [place] [address] Dr. Kassie Cheng TSHon 07-17-2022 TSH 1.588 uIU/mL Normal 0.358-3.740 [facility] Comment on above: Performed By: #### C MP, T4, TSH #### [facility] [address] [place] [address] Dr. Kassie Cheng MG MAMM SCREEN 3D CHANG CADon 06-06-2022 MG MAMM SCREEN 3D CHANG CAD Patient: IRIS ESTES Exam Date: 06/06/2022 : 1940 Gender:F Ordering : DR ADRIANO CORONA D.O. Admission #: [id number] Family : Order #: [id number] CLICK HERE TO VIEW EXAM RADIOLOGY REPORT [...] Treatments None Family Cancers None LOCATION: [facility] BREAST COMPOSITION: Heterogeneously dense,which may obscure [...] MD on 06/06/2022 at 13:56 Normal [facility] VC COMP CONSULTATIONon 09-12 VC COMP CONSULTATION Patient: IRIS ESTES Exam Date: 09/12/2021 : 1940 Gender:F Ordering : DR STEVEN GROVE M.D. Admission #: [id number] Family : Order #: [id number] CLICK HERE TO VIEW EXAM RADIOLOGY REPORT [...] M.D. on 09/12/2021 at 11:05 Normal [facility] VC VENOUS REFLUX CHANG LMTon 0 09-12-2021 VC VENOUS REFLUX CHANG LMT Patient: IRIS ESTES Exam Date: 09/12/2021 : 1940 Gender:F Ordering : DR STEVEN GROVE M.D. Admission #: [id number] Family : Order #: [id number] CLICK HERE TO VIEW EXAM RADIOLOGY REPORT [...] Thigh Thrombi: None. Compressibility: Normal. Flow: Normal. Axle Turner: Axle Turner distal calf measures 1.9 mm with 0.4 [...] Salinas M.D. on 09/12/2021 at 10:57 Normal [facility] Dipstick and Microscopicon 0 09-28-2018 Appearance Nom (U) Clear Normal Clear [facility] Comment on above: Order Comment: DR. Stephan MORRISON ADD MICROSCOPIC TO UA Name Collection Type: Clean-Voided Midstream Performed By: #### P ROCRERAT, PTH, [id number], URIC, MG, RENAL, CBCNO, ADDONUAPLUS #### [facility] [address] Bacteria LM.HPF #/area (Urine sed) None Seen Normal None Seen [facility] Comment on above: Order Comment: DR. Stephan MORRISON ADD MICROSCOPIC TO UA Name Collection Type: Clean-Voided Midstream Performed By: #### P ROCRERAT, PTH, [id number], URIC, MG, RENAL, CBCNO, ADDONUAPLUS #### [address] Bilirubin,Urine Negative Normal Negative [facility] Comment on above: Order Comment: DR. Stephan MORRISON ADD MICROSCOPIC TO UA Name Collection Type: Clean-Voided Midstream Performed By: #### P ROCRERAT, PTH, [id number], URIC, MG, RENAL, CBCNO, ADDONUAPLUS #### [address] Color Nom (U) Yellow Normal Yellow [facility] Comment on above: Order Comment: DR. Stephan MORRISON ADD MICROSCOPIC TO UA Name Collection Type: Clean-Voided Midstream Performed By: #### P ROCRERAT, PTH, [id number], URIC, MG, RENAL, CBCNO, ADDONUAPLUS #### [address] Glucose Ql (U) Normal Normal Normal [facility] Comment on above: Order Comment: DR. Stephan MORRISON ADD MICROSCOPIC TO UA Name Collection Type: Clean-Voided Midstream Performed By: #### P ROCRERAT, PTH, [id number], URIC, MG, RENAL, CBCNO, ADDONUAPLUS #### [address] Hyaline Casts,Urine 0-8 Normal 0-8 [facility] Comment on above: Order Comment: DR. Stephan MORRISON ADD MICROSCOPIC TO UA Name Collection Type: Clean-Voided Midstream Result Comment: PERF ORMED BY: [place] [address] PATHOLOGIST [employer] WORKER ENRRIQUE HARVEY M.D. Performed By: #### P ROCRERAT, PTH, [id number], URIC, MG, RENAL, CBCNO, ADDONUAPLUS #### [address] Ketones Ql (U) Negative Normal Negative [facility] Comment on above: Order Comment: DR. Stephan MORRISON ADD MICROSCOPIC TO UA Name Collection Type: Clean-Voided Midstream Performed By: #### P ROCRERAT, PTH, [id number], URIC, MG, RENAL, CBCNO, ADDONUAPLUS #### [address] Leukocyte esterase Test strip Ql (U) 2+ High Negative [facility] Comment on above: Order Comment: DR. Stephan MORRISON ADD MICROSCOPIC TO UA Name Collection Type: Clean-Voided Midstream Performed By: #### P ROCRERAT, PTH, [id number], URIC, MG, RENAL, CBCNO, ADDONUAPLUS #### [address] Nitrite,Urine Negative Normal Negative [facility] Comment on above: Order Comment: DR. Stephan MORRISON ADD MICROSCOPIC TO UA Name Collection Type: Clean-Voided Midstream Performed By: #### P ROCRERAT, PTH, [id number], URIC, MG, RENAL, CBCNO, ADDONUAPLUS #### [place] [address] [place] Occult Blood,Urine Negative Normal Negative [facility] Comment on above: Order Comment: DR. Stephan MORRISON ADD MICROSCOPIC TO UA Name Collection Type: Clean-Voided Midstream Performed By: #### P ROCRERAT, PTH, [id number], URIC, MG, RENAL, CBCNO, ADDONUAPLUS #### [address] pH (U) 5.5 [pH] Normal 5.0-9.0 [facility] Comment on above: Order Comment: DR. Stephan MORRISON ADD MICROSCOPIC TO UA Name Collection Type: Clean-Voided Midstream Performed By: #### P ROCRERAT, PTH, [id number], URIC, MG, RENAL, CBCNO, ADDONUAPLUS #### [address] Protein mass conc (U) Negative Normal Negative [facility] Comment on above: Order Comment: DR. Stephan MORRISON ADD MICROSCOPIC TO UA Name Collection Type: Clean-Voided Midstream Performed By: #### P ROCRERAT, PTH, [id number], URIC, MG, RENAL, CBCNO, ADDONUAPLUS #### [address] RBC LM.HPF #/area (Urine sed) 1-2 Normal 0-4 [facility] Comment on above: Order Comment: DR. Stephan MORRISON ADD MICROSCOPIC TO UA Name Collection Type: Clean-Voided Midstream Performed By: #### P ROCRERAT, PTH, [id number], URIC, MG, RENAL, CBCNO, ADDONUAPLUS #### [address] Specificy [place],Urine 1.014 Normal 1.001-1.030 [facility] Comment on above: Order Comment: DR. Stephan MORRISON ADD MICROSCOPIC TO UA Name Collection Type: Clean-Voided Midstream Performed By: #### P ROCRERAT, PTH, [id number], URIC, MG, RENAL, CBCNO, ADDONUAPLUS #### [address] Squamous Epithelial Cell,Urine 1-2 Normal 0-2 [facility] Comment on above: Order Comment: DR. Stephan MORRISON ADD MICROSCOPIC TO UA Name Collection Type: Clean-Voided Midstream Performed By: #### P ROCRERAT, PTH, [id number], URIC, MG, RENAL, CBCNO, ADDONUAPLUS #### [address] Urobilinogen,Urine Normal Normal Normal [facility] Comment on above: Order Comment: DR. Stephan MORRISON ADD MICROSCOPIC TO UA Name Collection Type: Clean-Voided Midstream Performed By: #### P ROCRERAT, PTH, [id number], URIC, MG, RENAL, CBCNO, ADDONUAPLUS #### [address] WBC LM.HPF #/area (Urine sed) 1-2 Normal 0-4 [facility] Comment on above: Order Comment: DR. Stephan MORRISON ADD MICROSCOPIC TO UA Name Collection Type: Clean-Voided Midstream Performed By: #### P ROCRERAT, PTH, [id number], URIC, MG, RENAL, CBCNO, ADDONUAPLUS #### [address] Hemogram CBC Without Diffon 09-28-2018 Erythrocyte distribution width Ratio (RBC) 14.0 % Normal 11.9-15.3 [facility] Comment on above: Order Comment: DR. Stephan MORRISON ADD MICROSCOPIC TO UA Performed By: #### P ROCRERAT, PTH, [id number], URIC, MG, RENAL, CBCNO, ADDONUAPLUS #### [address] Hematocrit Volume Fraction (Bld) 40.8 % Normal 34.0-46.4 [facility] Comment on above: Order Comment: DR. Stephan MORRISON ADD MICROSCOPIC TO UA Performed By: #### P ROCRERAT, PTH, [id number], URIC, MG, RENAL, CBCNO, ADDONUAPLUS #### [address] Hemoglobin mass conc (Bld) 13.5 g/dL Normal 11.8-15.4 [facility] Comment on above: Order Comment: DR. Stephan MORRISON ADD MICROSCOPIC TO UA Performed By: #### P ROCRERAT, PTH, [id number], URIC, MG, RENAL, CBCNO, ADDONUAPLUS #### [place] [id number] [place] MCH Entitic mass (RBC) 33.2 g/dL Normal 32.0-35.0 [facility] Comment on above: Order Comment: DR. Stephan MORRISON ADD MICROSCOPIC TO UA Performed By: #### P ROCRERAT, PTH, [id number], URIC, MG, RENAL, CBCNO, ADDONUAPLUS #### [address] MCH Entitic mass (RBC) 28.0 pg Normal 24.7-34.3 [facility] Comment on above: Order Comment: DR. Stephan MORRISON ADD MICROSCOPIC TO UA Performed By: #### P ROCRERAT, PTH, [id number], URIC, MG, RENAL, CBCNO, ADDONUAPLUS #### [address] MCV Entitic volume (RBC) 84.2 fL Normal 80-100 [facility] Comment on above: Order Comment: DR. Stephan MORRISON ADD MICROSCOPIC TO UA Performed By: #### P ROCRERAT, PTH, [id number], URIC, MG, RENAL, CBCNO, ADDONUAPLUS #### [address] Platelet mean volume Entitic volume (Bld) 9.6 fL Normal 6.3-10.7 [facility] Comment on above: Order Comment: DR. Stephan MORRISON ADD MICROSCOPIC TO UA Result Comment: PERF ORMED BY: [place] [address] PATHOLOGIST CANNERY WORKER ENRRIQUE HARVEY M.D. Performed By: #### P ROCRERAT, PTH, [id number], URIC, MG, RENAL, CBCNO, ADDONUAPLUS #### [address] Platelets #/vol (Bld) 224 10*3/uL Normal 150-450 [facility] Comment on above: Order Comment: DR. Stephan MORRISON ADD MICROSCOPIC TO UA Performed By: #### P ROCRERAT, PTH, [id number], URIC, MG, RENAL, CBCNO, ADDONUAPLUS #### [facility] [address] RBC #/vol (Bld) 4.84 10*6/uL Normal 3.60-5.00 [facility] Comment on above: Order Comment: DR. Stephan MORRISON ADD MICROSCOPIC TO UA Performed By: #### P ROCRERAT, PTH, [id number], URIC, MG, RENAL, CBCNO, ADDONUAPLUS #### [facility] [address] [place] [address] WBC #/vol (Bld) 4.3 10*3/uL Normal 3.8-11.6 [facility] Comment on above: Order Comment: DR. Stephan MORRISON ADD MICROSCOPIC TO UA Performed By: #### P ROCRERAT, PTH, [id number], URIC, MG, RENAL, CBCNO, ADDONUAPLUS #### [address] Magnesiumon 09-28-2018 Magnesium mass conc 1.8 mg/dL Normal 1.6-2.6 [facility] Comment on above: Order Comment: DR. Stephan MORRISON ADD MICROSCOPIC TO UA Performed By: #### P ROCRERAT, PTH, [id number], URIC, MG, RENAL, CBCNO, ADDONUAPLUS #### [address] Parathyroid Hormone Intacton 09-28-2018 Parathyroid Hormone Intact 44.2 pg/mL Normal 12-88 [facility] Comment on above: Order Comment: DR. Stephan MORRISON ADD MICROSCOPIC TO UA Result Comment: PERF ORMED BY: [place] [address] PATHOLOGIST CANNERY WORKER ENRRIQUE HARVEY M.D. Performed By: #### P ROCRERAT, PTH, [id number], URIC, MG, RENAL, CBCNO, ADDONUAPLUS #### [address] Protein Creat Ratio Ur Rando mon 09-28-2018 Creatinine, Urine (Random) 159.8 mg/dL Normal [facility] Comment on above: Order Comment: DR. Stephan MORRISON ADD MICROSCOPIC TO UA Result Comment: No r eference range established Performed By: #### P ROCRERAT, PTH, [id number], URIC, MG, RENAL, CBCNO, ADDONUAPLUS #### [facility] [address] Protein mass conc (U) mg/dL Normal 0-9 [facility] Comment on above: Order Comment: DR. Stephan MORRISON ADD MICROSCOPIC TO UA Performed By: #### P ROCRERAT, PTH, [id number], URIC, MG, RENAL, CBCNO, ADDONUAPLUS #### [address] Urine Protein/Creatinine Ratio Test not performed Normal 0-200 [facility] Comment on above: Order Comment: DR. Stephan MORRISON ADD MICROSCOPIC TO UA Result Comment: PERF ORMED BY: [place] [address] PATHOLOGIST CANNERY WORKER ENRRIQUE HARVEY M.D. Performed By: #### P ROCRERAT, PTH, [id number], URIC, MG, RENAL, CBCNO, ADDONUAPLUS #### [address] Renal Function Panelon 09-28 Albumin mass conc 3.8 g/dL Normal 3.2-5.5 [facility] Comment on above: Order Comment: DR. Stephan MORRISON ADD MICROSCOPIC TO UA Performed By: #### P ROCRERAT, PTH, [id number], URIC, MG, RENAL, CBCNO, ADDONUAPLUS #### [address] Calcium mass conc 9.3 mg/dL Normal 8.2-10.2 [facility] Comment on above: Order Comment: DR. Stephan MORRISON ADD MICROSCOPIC TO UA Performed By: #### P ROCRERAT, PTH, [id number], URIC, MG, RENAL, CBCNO, ADDONUAPLUS #### [address] Chloride molar conc 104 mmol/L Normal 95-114 [facility] Comment on above: Order Comment: DR. Stephan MORRISON ADD MICROSCOPIC TO UA Performed By: #### P ROCRERAT, PTH, [id number], URIC, MG, RENAL, CBCNO, ADDONUAPLUS #### [facility] [address] [place] [id number] [facility] CO2 molar conc 26.6 mmol/L Normal 22.0-30.0 [facility] Comment on above: Order Comment: DR. Stephan MORRISON ADD MICROSCOPIC TO UA Performed By: #### P ROCRERAT, PTH, [id number], URIC, MG, RENAL, CBCNO, ADDONUAPLUS #### [facility] [address] Creatinine mass conc 0.95 mg/dL Normal 0.44-1.03 [facility] Comment on above: Order Comment: DR. Stephan MORRISON ADD MICROSCOPIC TO UA Performed By: #### P ROCRERAT, PTH, [id number], URIC, MG, RENAL, CBCNO, ADDONUAPLUS #### [address] Estimated GFR ( Zainab > 60 Normal [facility] Comment on above: Order Comment: DR. Stephan MORRISON ADD MICROSCOPIC TO UA Result Comment: GFR estimated reference range: According to KDOQI guidelines, <60 ml/min/1.73m2 is sufficient to diagnose a patient with chronic kidney disease. Performed By: #### P ROCRERAT, PTH, [id number], URIC, MG, RENAL, CBCNO, ADDONUAPLUS #### [facility] [address] [place] [address] Estimated GFR (Non- Am 57 Normal [facility] Comment on above: Order Comment: DR. Stephan MORRISON ADD MICROSCOPIC TO UA Performed By: #### P ROCRERAT, PTH, [id number], URIC, MG, RENAL, CBCNO, ADDONUAPLUS #### [facility] [address] [place] [id number] [facility] Glucose mass conc 95 mg/dL Normal 70-100 [facility] Comment on above: Order Comment: DR. Stephan MORRISON ADD MICROSCOPIC TO UA Result Comment: [place] om Glucose Reference Range is dependent on time and content of last meal. Glucose of more than 200 mg/dL in a nonstressed, ambulatory subject supports the diagnosis of Diabetes Mellitus. ADA recommended reference range Performed By: #### P ROCRERAT, PTH, [id number], URIC, MG, RENAL, CBCNO, ADDONUAPLUS #### [facility] [address] Phosphate mass conc 3.9 mg/dL Normal 2.5-4.6 [facility] Comment on above: Order Comment: DR. Stephan MORRISON ADD MICROSCOPIC TO UA Performed By: #### P ROCRERAT, PTH, [id number], URIC, MG, RENAL, CBCNO, ADDONUAPLUS #### [facility] [address] Potassium molar conc 3.5 mmol/L Normal 3.5-5.1 [facility] Comment on above: Order Comment: DR. Stephan MORRISON ADD MICROSCOPIC TO UA Performed By: #### P ROCRERAT, PTH, [id number], URIC, MG, RENAL, CBCNO, ADDONUAPLUS #### [facility] [address] [place] [address] [place] Sodium molar conc 137 mmol/L Normal 136-146 [facility] Comment on above: Order Comment: DR. Stephan MORRISON ADD MICROSCOPIC TO UA Performed By: #### P ROCRERAT, PTH, [id number], URIC, MG, RENAL, CBCNO, ADDONUAPLUS #### [facility] [address] [place] [address] [place] Urea nitrogen mass conc 14 mg/dL Normal 9-23 [facility] Comment on above: Order Comment: DR. Stephan MORRISON ADD MICROSCOPIC TO UA Performed By: #### P ROCRERAT, PTH, [id number], URIC, MG, RENAL, CBCNO, ADDONUAPLUS #### [facility] [address] [place] [id number] [facility] Uric Acidon 09-28-2018 Urate mass conc 6.0 mg/dL Normal 2.6-7.2 [facility] Comment on above: Order Comment: DR. Stephan MORRISON ADD MICROSCOPIC TO UA Performed By: #### P ROCRERAT, PTH, [id number], URIC, MG, RENAL, CBCNO, ADDONUAPLUS #### [facility] [address] [place] [id number] [facility] Vitamin D 25 Hydroxy Totalon 09-28-2018 Vitamin D 25 Hydroxy Total 30.1 ng/mL Normal 30-100 [facility] Comment on above: Order Comment: DR. Stephan MORRISON ADD MICROSCOPIC TO UA Result Comment: [place] MIN D STATUS 25(OH)VITAMIN D RANGE (ng/mL) Deficient <20 Insufficient 20 to <30 Sufficient 30 to 100 Reference: Jaimie MF,Jurgen NC, Lamonte BAPTISTE, et al. Evaluation,treatment, and prevention of vitamin D deficiency; an Endocrine Society clinical practice guideline. JCEM. 2010; 96(7):1911-30. Performed By: #### P ROCRERAT, PTH, [id number], URIC, MG, RENAL, CBCNO, ADDONUAPLUS #### [facility] [address] [place] [address] [facility] Vital Signs Date Time Vital Sign Value Performing Clinician Facility 06-28-2024 13:11050 Body height 149.9 cm Tengahmer PA Work Phone: [facility] 06-28-2024 13:11-0500 Body mass index (BMI) [Ratio] 25.17 kg/m2 Maeve Hemmer PA Work Phone: [facility] 06-28-2024 13:11050 Body weight 56.52 kg Maeve Hemmer PA Work Phone: [facility] 06-28-2024 13:11-0500 Diastolic blood pressure 72 mm[Hg] Maeve Hemmer PA Work Phone: [facility] 06-28-2024 13:11-0500 Heart rate 69 /min Maeve Hemmer PA Work Phone: [facility] 06-28-2024 13:11-0500 Respiratory rate 16 /min Maeve Hemmer PA Work Phone: [facility] 06-28-2024 13:11-0500 SaO2% (BldA) [Mass fraction] 97 % Maeve GOMEZ Work Phone: [facility] 06-28-2024 13:11-0500 Systolic blood pressure 164 mm[Hg] Maeve GOMEZ Work Phone: [facility] 08-09-2022 14:00-0500 Body height 149.86 cm Roselyn Sarahy Other [facility] Other 08-09-2022 14:00-0500 Body mass index (BMI) [Ratio] 24.84 kg/m2 Roselyn Sarahy Other [facility] Other 08-09-2022 14:00-0500 Body temperature 98.9 [degF] Roselyn Sarahy Other [facility] Other 08-09-2022 14:00-0500 Body weight 55.79 kg Roselyn Sarahy Other [facility] Other 08-09-2022 14:00-0500 Diastolic blood pressure 93 mm[Hg] Roselyn Sarahy Other [facility] Other 08-09-2022 14:00-0500 Respiratory rate 18 /min Roselyn Sarahy Other [facility] Other 08-09-2022 14:00-0500 SaO2% (BldA) [Mass fraction] 98 % Roselyn Sarahy Other [facility] Other 08-09-2022 14:00-0500 Systolic blood pressure 191 mm[Hg] Roselyn Sarahy Other [facility] Other Encounters Encounter Date Encounter Type Care Provider Facility Start: 06-28-2024 End: 06-28-2024 Office outpatient visit 15 minutes Maeve Lopez PA Work Phone: [facility] Comment on above: Right wrist pain (Pr imary Dx); Primary osteoarthritis of right wrist; Primary hypertension (CMS/HCC) Start: 06-27-2024 End: 06-27-2024 Refill Heather Saravia COT Work Phone: [facility] Comment on above: Age-related nuclear cataract of right eye (Primary Dx); Age-related nuclear cataract of both eyes Start: 06-17-2024 End: 06-17-2024 Refill Juan M Tyler DO Work Phone: [facility] Comment on above: Primary open angle g laucoma (POAG) of both eyes, mild stage (CMS/HCC) Start: 06-10-2024 End: 06-10-2024 Bamboo flowsheet Juan M Tyler DO Work Phone: [facility] Start: 06-10-2024 End: 06-10-2024 Bamboo flowsheet Juan M Tyler DO Work Phone: [facility] Start: 06-10-2024 End: 06-10-2024 Postop follow up visit related to original px Juan M Tyler DO Work Phone: [facility] Comment on above: Pseudophakia (Primar y Dx); Age-related nuclear cataract of right eye; Primary open angle glaucoma (POAG) of both eyes, mild stage (CMS/HCC) Start: 06-10-2024 End: 06-10-2024 ambulatory JUAN M TYLER Not Available Start: 06-03-2024 End: 06-03-2024 Bamboo flowsheet Juan M Tyler DO Work Phone: [facility] Start: 06-03-2024 End: 06-03-2024 Bamboo flowsheet Juan M Tyler DO Work Phone: [facility] Start: 06-03-2024 End: 06-03-2024 Postop follow up visit related to original px Juan M Tyler DO Work Phone: [facility] Comment on above: Pseudophakia (Primar y Dx) Start: 06-03-2024 End: 06-03-2024 ambulatory JUAN M TYLER Not Available Start: 05-24-2024 End: 05-24-2024 Office outpatient visit 25 minutes Juan M Tyler DO Work Phone: [facility] Comment on above: Age-related nuclear cataract of both eyes (Primary Dx); Primary open angle glaucoma (POAG) of both eyes, mild stage (CMS/HCC); Early dry stage nonexudative age-related macular degeneration of both eyes; Dry eyes; Blepharitis of upper and lower eyelids of both eyes, unspecified type Start: 05-24-2024 End: 05-24-2024 Bamboo flowsheet Juan M Tyler DO Work Phone: [facility] Start: 05-24-2024 End: 05-24-2024 Bamboo flowsheet Juan M Tyler DO Work Phone: [facility] Start: 05-24-2024 End: 05-24-2024 ambulatory JUAN M TYLER Not Available Start: 03-14-2024 End: 03-14-2024 ambulatory RUGEN M JOSUÉ Not Available Start: 02-22-2024 End: 02-22-2024 ambulatory JUAN M TYLER Not Available Start: 01-21-2024 End: 01-21-2024 ambulatory NANCY VALENZUELAVELY Not Available Start: 12-14-2023 End: 12-14-2023 ambulatory RUGEN M JOSUÉ Not Available Start: 11-30-2023 End: 11-30-2023 ambulatory RUGEN M JOSUÉ Not Available Start: 11-12-2023 End: 11-12-2023 ambulatory RUGEN M JOSUÉ Not Available Start: 08-03-2023 End: 08-03-2023 ambulatory RUGEN M JOSUÉ Not Available Start: 07-16-2023 End: 07-16-2023 ambulatory NANCY MONTEIRO Not Available Start: 08-09-2022 End: 08-09-2022 ambulatory Roselyn Weathers Other [facility] Other Start: 08-09-2022 Office outpatient ne w 30 minutes Roselyn Sarahy [facility] [place] Start: 07-17-2022 End: 07-18-[address] ADRIANO CORONA Facility:[facility] Start: 06-06-2022 End: 06-07-[address] ADRIANO CORONA Facility:[facility] Start: 09-12-2021 End: 09-13-[address] ADRIANO CORONA Facility:[facility] Start: 09-05-2021 End: 09-06-[address] STEVEN GROVE Facility:[facility] Start: 09-28-2018 End: 09-28-2018 Patient encounter procedure Olga Hayes Facility:[facility] Procedures Date Procedure Procedure Detail Performing Clinician Start: 05-24-2024 End: 05-24-2024 Oph bmtry prtl coher intrfrmtry io lens pwr carlton Juan M Tyler DO Work Phone: Plan of Treatment Date Care Activity Detail Author Start: 09-19-2024 End: 09-19-2024 Patient encounter procedure 09/19/2024 1:00 PM EST Office Visit [facility] [address] [facility] [address] [place] [id number] Lana Moses MD [address] [facility] [address] [place] [address] [facility] Start: 07-31-2024 Pneumococcal Vaccine [...] Visit [facility] [address] [place] [address] Juan M Tyler DO [address] [place] [address] [facility] Start: 06-28-2024 End: 06-28-2024 Patient encounter procedure 06/28/2024 1:00 PM EST Office Visit [facility] [address] [place] [address] Maeve Lopez PA [address] [place] [address] [facility] Start: 06-03-2024 End: 06-03-2024 Patient encounter procedure [facility] Comment on above: Arrived Start: 05-24-2024 End: 05-24-2024 Patient encounter procedure 05/24/2024 2:15 PM EDT Office Visit [facility] [address] [place] [address] Juan M Tyler DO [address] [place] [address] Arrived [facility] Comment on above: Arrived Immunizations Immunization Date Immunization Notes Care Provider [facility] 05-11-2023 Influenza, High-dose Seasonal, Quadrivalent, Preservative Free Juan M Tyler DO Work Phone: [facility] 12-20-2022 zoster vaccine recombinant J franklin Tyler DO Work Phone: [facility] 10-19-2022 zoster vaccine recombinant J franklin Tyler DO Work Phone: [facility] 03-14-2022 Influenza, Seasonal, Quadrivalent, Adjuvanted Juan M Tyler DO Work Phone: [facility] 04-11-2021 Influenza, High-dose Seasonal, Quadrivalent, Preservative Free Juan M Tyler DO Work Phone: [facility] 03-23-2020 influenza, injectabl e, quadrivalent, preservative free Juan M Tyler DO Work Phone: [facility] 05-07-2019 pneumococcal polysaccharide vaccine, 23 valent Juan M Tyler DO Work Phone: [facility] 05-07-2019 Seasonal trivalent influenza vaccine, adjuvanted, preservative free Juan M Tyler DO Work Phone: [facility] 04-20-2013 influenza virus vacc ine, whole virus Juan M Tyler DO Work Phone: [facility] 04-27-2012 influenza virus vacc ine, whole virus Juan M Tyler DO Work Phone: [facility] 04-23-2011 influenza virus vacc ine, whole virus Juan M Tyler DO Work Phone: [facility] 05-02-2009 influenza virus vacc ine, whole virus Juan M Tyler DO Work Phone: [facility] Payers Date Payer Category Payer Self-pay 2018 Unknown [id number] 2018 Private Health Insurance [facility] [id number] 2005 Medicare MEDICARE [id number] 5 1959 Medicare [id number] 1959 Unknown [id number] 1940 Unknown [id number] [id number] .2.593 1940 Unknown [id number] 2.16.840.1.815302.3.579 .2.593 1940 Unknown [id number] 2.16.840.1.688179.3.579 .2.593 1940 Unknown [id number] 2.16.840.1.673975.3.579 .2.593 1940 Unknown [id number] 2.16.840.1.052373.3.579 .2.125 1940 Unknown [id number] 2.16.840.1.851158.3.579 .2.125 1940 Unknown [id number] 2.16.840.1.390432.3.579 .2.1259 1940 Unknown [id number] 2.16.840.1.333038.3.579 .2.1259 1940 Unknown [id number] 2.16.840.1.203733.3.579 .2.1259 1940 Unknown [id number] 2.16.840.1.160823.3.579 .2.125 1940 Unknown [id number] 2.16.840.1.699741.3.579 .2.125 1940 Unknown [id number] 2.16.840.1.392507.3.579 .2.125 1940 Unknown [id number] 2.16.840.1.701270.3.579 .2.1259 1940 Unknown [id number] 2.16.840.1.432772.3.579 .2.1259 1940 Unknown [id number] 2.16.840.1.705712.3.579 .2.1259 Unknown [id number] [id number] .2.531 Social History Date Type Detail Facility Start: 07-16-2023 End: 03-14-2024 Sex Assigned At [facility] [employer] Other Start: 07-16-2023 Tobacco smoking stat [facility] Never smoked tobacco [facility] Start: 07-16-2023 Tobacco use and exposure Smokeless tobacco non-user [facility] Start: 03-14-2024 End: 06-10-2024 Alcoholic beverage intake [facility] Start: 07-16-2023 End: 03-14-2024 History of Social function [facility] Start: 1940 Sex assigned at Not on file [facility] Start: 06-28-2024 Alcoholic beverage intake Ex-drinker (finding) [facility] Clinical Notes 08-09-2022 to 06-28-2024 Maeve Lopez, PATRICIA - 06/28/2024 1:00 PM Sheila Tyler, DO - 06/10/2024 8:15 AM Sheila Tyler, DO - 06/03/2024 8:15 AM Sheila Tyler, DO - 05/24/2024 2:15 PM EDT Note Date & Type Note Facility 06-28-2024 History of Presen t illness Narrative Images from the original note were not included. Subjective Patient ID: Iris Estes is a 84 y.o. female who presents for wrist pain. Iris is present today for evaluation of wrist pain. Admits right wrist pain for a few weeks. 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 It hurts when she lifts or pulls on something. She has been using ice and resting it. Also using a wrap at times, which also helps. States recently had left cataract surgery and is getting her right eye taken care of on . H/o very repetitious use of her hands in previous jobs. Current Outpatient Medications on File Prior to Visit Medication Sig Dispense Refill amLODIPine (Norvasc) 5 MG tablet Take 1 tablet (5 mg) by mouth Daily 30 tablet 11 dorzolamide-timolol (Cosopt) 2-0.5 % ophthalmic solution ADMINISTER 1 DROP INTO BOTH EYES IN THE MORNING AND 1 DROP BEFORE BEDTIME. 30 mL 1 hydroCHLOROthiazide (HYDRODiuril) 25 MG tablet Take 1 tablet (25 mg) by mouth Daily 100 tablet 3 ketorolac (Acular) 0.5 % ophthalmic solution Administer 1 drop into affected eye(s) in the morning and 1 drop before bedtime. 5 mL 0 latanoprost (Xalatan) 0.005 % ophthalmic solution Administer 1 drop into both eyes at bedtime 2.5 mL 6 lisinopril 40 MG tablet Take 1 tablet (40 mg) by mouth in the morning. 100 tablet 3 ofloxacin (Ocuflox) 0.3 % ophthalmic solution Administer 1 drop into affected eye(s) 5 (five) times a day for 1 day Starting 1 day before surgery, continue after surgery as directed 5 mL 0 prednisoLONE acetate (Pred-Forte) 1 % ophthalmic suspension Administer 1 drop into affected eye(s) in the morning and 1 drop at noon and 1 drop in the evening and 1 drop before bedtime. Do all this for 14 days. 5 mL 0 [DISCONTINUED] ketorolac (Acular) 0.5 % ophthalmic solution Administer 1 drop into affected eye(s) in the morning and 1 drop before bedtime. 5 mL 1 No current facility-administered medications on file prior to visit. I have reviewed and reconciled the history and medication list with the patient today. No Known Allergies Social History Tobacco Use Smoking status: Never Smokeless tobacco: Never Vaping Use Vaping status: Unknown Substance Use Topics Alcohol use: Not Currently Drug use: Never Family History Problem Relation Name Age of Onset Glaucoma Mother Heart disease Mother No Known Problems Father Dementia Sister Diabetes Sister Diabetes Brother Prostate cancer Brother Breast cancer Daughter No Known Problems Father's Sister Past Medical History: Diagnosis Date Blepharitis Cataract Dry eyes Glaucoma (CMS/HCC) Macular degeneration Secondary hypertension (CMS/HCC) 08/03/2023 Past Surgical History: Procedure Laterality Date APPENDECTOMY EYE SURGERY Left 06/23/2024 cataract extraction Visit Vitals BP 164/72 Pulse 69 Resp 16 Ht 4' 11 Wt 124 lb 9.6 oz SpO2 97% BMI 25.17 kg/m Smoking Status Never BSA 1.53 m Review of Systems Constitutional: Negative for chills, fatigue and fever. Respiratory: Negative for cough, shortness of breath and wheezing. Cardiovascular: Negative for chest pain, palpitations and leg swelling. Gastrointestinal: Negative for abdominal pain, constipation, diarrhea, nausea and vomiting. Musculoskeletal: Positive for arthralgias. Skin: Negative for rash. Objective Physical Exam Constitutional: General: She is not in acute distress. Appearance: Normal appearance. She is well-developed. HENT: Head: Normocephalic and atraumatic. Eyes: General: No scleral icterus. Conjunctiva/sclera: Conjunctivae normal. Cardiovascular: Rate and Rhythm: Normal rate and regular rhythm. Heart sounds: Normal heart sounds. No murmur heard. Pulmonary: Effort: Pulmonary effort is normal. No respiratory distress. Breath sounds: Normal breath sounds. No wheezing, rhonchi or rales. Musculoskeletal: Right wrist: Bony tenderness (Over pisiform bone) present. No swelling or deformity. Normal range of motion. Normal pulse. Right hand: Normal strength. Normal sensation. Normal capillary refill. Skin: General: Skin is warm and dry. Neurological: General: No focal deficit present. Mental Status: She is alert and oriented to person, place, and time. Psychiatric: Mood and Affect: Mood normal. Behavior: Behavior normal. Assessment/Plan Diagnoses and all orders for this visit: Right wrist pain Pain likely due to arthritic changes and overuse. Primary osteoarthritis of right wrist - diclofenac sodium (Voltaren Arthritis Pain) 1 % gel; Apply 2 g topically 4 (four) times a day as needed for pain Start Diclofenac to area as prescribed. Can continue ice and wrapping it as needed. If no improvement over next 1-2 weeks, may need to obtain imaging and/or refer pt to Ortho for further evaluation and treatment. Primary hypertension (CMS/HCC) BP was elevated today. Has a follow up appointment scheduled. Will recheck at next appointment. Medications can be adjusted at that time if needed. Follow up for Appointment As Scheduled. documented in this encounter [facility] 06-10-2024 History of Presen t illness Narrative Images from the original note were not included. Assessment/Plan Diagnoses and all orders for this visit: Pseudophakia - s/p CE left eye (OS) / aborted Hydrus Stent (POD #7): Patient provided with post-op form. Instructed to continue drops. Discontinue eye shield. Instructed to call immediately with increased pain, redness, decreased vision, questions or concerns. Cont Latanoprost and Dorz/Ed Age-related nuclear cataract of right eye - Visually Significant Cataract, OU: I discussed [...] different lens options were explained including the fve-vs-mnakro fees for any upgrades. Intraocular lens (IOL) [...] of both eyes, mild stage (CMS/HCC) - The patient demonstrates mild to moderate [...] that forces them to remain poorly compliant. documented in this encounter [facility] 06-03-2024 History of Presen t illness Narrative Images from the original note were not included. Assessment/Plan Diagnoses and all orders for this visit: Pseudophakia - s/p CE left eye (OS) / aborted Hydrus Stent (POD #1): Patient provided with post-op form. Instructed to continue drops as well as shield. Instructed to call immediately with increased pain, redness, decreased vision, questions or concerns. - Cont Latanoprost and Dorz/Ed documented in this encounter [facility] 05-24-2024 Note Right Eye Quality was good. Scan locations included subfoveal. Progression has been stable. Findings include normal observations. Left Eye Quality was good. Scan locations included subfoveal. Progression has been stable. Findings include normal observations. Notes Good scan with normal appearance [facility] 05-24-2024 History of Presen t illness Narrative [...] different lens options were explained including the lwx-fp-[id number] fees for any upgrades. Intraocular lens (IOL) [...] scrubs were recommended. documented in this encounter [facility] 08-09-2022 Evaluation note Encounter Date Diagnosis Assessment [...] kidney issues involved, this is not clear. [employer] Other Evaluation note* Diagnosis Bilateral impacted cerumen- Primary Impacted cerumen [...] eyes, unspecified type documented in this encounter [facility] HealthcareEvaluation [facility]* Diagnosis Bilateral impacted cerumen- Primary Impacted cerumen Secondary hypertension (CMS/HCC) Other secondary hypertension, unspecified Secondary hypertension (CMS/HCC) Other secondary hypertension, unspecified Secondary hypertension (CMS/HCC)- Primary Other secondary hypertension, unspecified Secondary hypertension (CMS/HCC)- Primary Other secondary hypertension, unspecified Primary hypertension (CMS/HCC) Unspecified essential hypertension Pseudophakia- Primary Lens replaced by other means documented in this encounter [facility] HealthcareEvaluation note* Diagnosis Bilateral impacted cerumen- Primary Impacted cerumen Secondary hypertension (CMS/HCC) Other secondary hypertension, unspecified Secondary hypertension (CMS/HCC) Other secondary hypertension, unspecified Secondary hypertension (CMS/HCC)- Primary Other secondary hypertension, unspecified Secondary hypertension (CMS/HCC)- Primary Other secondary hypertension, unspecified Primary hypertension (CMS/HCC) Unspecified essential hypertension Primary open angle glaucoma (POAG) of both eyes, mild stage (CMS/HCC) documented in this encounter [facility]* Diagnosis Bilateral impacted cerumen- Primary Impacted cerumen Secondary hypertension (CMS/HCC) Other secondary hypertension, unspecified Secondary hypertension (CMS/HCC) Other secondary hypertension, unspecified Secondary hypertension (CMS/HCC)- Primary Other secondary hypertension, unspecified Secondary hypertension (CMS/HCC)- Primary Other secondary hypertension, unspecified Primary hypertension (CMS/HCC) Unspecified essential hypertension Pseudophakia- Primary Lens replaced by other means Age-related nuclear cataract of right eye Primary open angle glaucoma (POAG) of both eyes, mild stage (CMS/HCC) documented in this encounter [facility]* Diagnosis Bilateral impacted cerumen- Primary Impacted cerumen Secondary hypertension (CMS/HCC) Other secondary hypertension, unspecified Secondary hypertension (CMS/HCC) Other secondary hypertension, unspecified Secondary hypertension (CMS/HCC)- Primary Other secondary hypertension, unspecified Secondary hypertension (CMS/HCC)- Primary Other secondary hypertension, unspecified Primary hypertension (CMS/HCC) Unspecified essential hypertension Age-related nuclear cataract of right eye- Primary Age-related nuclear cataract of both eyes documented in this encounter [facility]* Diagnosis Bilateral impacted cerumen- Primary Impacted cerumen Secondary hypertension (CMS/HCC) Other secondary hypertension, unspecified Secondary hypertension (CMS/HCC) Other secondary hypertension, unspecified Secondary hypertension (CMS/HCC)- Primary Other secondary hypertension, unspecified Secondary hypertension (CMS/HCC)- Primary Other secondary hypertension, unspecified Primary hypertension (CMS/HCC) Unspecified essential hypertension Right wrist pain- Primary Pain in joint, forearm Primary osteoarthritis of right wrist Primary hypertension (CMS/HCC) Unspecified essential hypertension [facility] Narrative - Reported* Type Description Date Medical History Secondary hypertension Surgical History appendectomy Hospitalization History see above Hospitalization History child births x 4 [employer] Other Summary Purpose Family History No Family History Records FoundNo Family History Records FoundNo Family History Records Found Advance Directives No Advanced Directives Records FoundNo Advanced Directives Records FoundNo Advanced Directives Records Found Additional Source Comments INFORMATION SOURCE (unrecogn ized section and content) DATE CREATED AUTHOR 09/30/2018 [facility] DATE CREATED AUTHOR AUTHOR'S ORGANIZ ATION 07/24/2022 [facility] DATE CREATED AUTHOR AUTHOR'S ORGANIZ ATION 06/12/2024 [facility] EPIC REASON FOR VISIT (unrecogniz ed section and content) Reason Comments Follow-up Cataract Reason Comments Post-op Reason Comments Med Refill Reason Comments Post-op Cataract Reason Onset Date Comments Med Refill 06/27/2024 Care Teams (unrecognized sec tion and content) Mobile Application Engineer Relationship Specialty Start Date End Date Unallocated, Floridalma Ham MD [facility] [employer] [place] [address] PCP - General 04/16/23 Mobile Application Engineer Relationship Specialty Start Date End Date Unallocated, Floridalma Ham MD [facility] [employer] [facility] [address] PCP - General 04/16/23 Mobile Application Engineer Relationship Specialty Start Date End Date Unallocated, Floridalma Ham MD [facility] [place] [address] PCP - General 04/16/23 Mobile Application Engineer Relationship Specialty Start Date End Date Unallocated, Floridalma Ham MD [facility] [place] [address] PCP - General 04/16/23 Mobile Application Engineer Relationship Specialty Start Date End Date Unallocated, Floridalma Ham MD [facility] [employer] [facility] [address] PCP - General 04/16/23 Mobile Application Engineer Relationship Specialty Start Date End Date Unallocated, Floridalma Ham MD [facility] [place] [address] PCP - General 04/16/23 Mobile Application Engineer Relationship Specialty Start Date End Date Unallocated, Floridalma Ham MD [facility] [place] [address] PCP - General 04/16/23 Mobile Application Engineer Relationship Specialty Start Date End Date Unallocated, Floridalma Ham MD [address] [place] [address] PCP - General 04/16/23 Mobile Application Engineer Relationship Specialty Start Date End Date Unallocated, Floridalma Ham MD [address] [employer] [facility] [place] [place] [id number] PCP - General 04/16/23 FOR RECORDS PERTAINING [...] BE BASED ON THE PRIMARY CLINICAL RECORDS. [facility] [employer] [facility]. provides no warranty or guarantee of the accuracy or completeness of information in this document.
[2024-06-30 07:10] VITALS: BP 171/74; PULSE 68; TEMP 36.2; O2SAT 98; BMI 25.4
[2024-06-30] MEDS: DIAZEPAM 5 MG TABLET 10 MG PO (07:23)
[2024-06-30] MEDS: BESIFLOXACIN HCL 100 DROP DROPS.SUSP OP ×4 (07:24→07:57)
[2024-06-30] MEDS: CYCLOPENTOLATE HCL 1% OP SOL 40 DROP/2 ML BOTTLE OP ×4 (07:25→07:57)
[2024-06-30] MEDS: PHENYLEPHRINE HCL 2.5% OP SOL 40 DROP/2 ML BOTTLE OP ×4 (07:25→07:58)
[2024-06-30] MEDS: TROPICAMIDE 1% OP SOL 300 DROP/15 ML BOTTLE OP ×4 (07:26→07:58)
[2024-06-30] MEDS: PROPARACAINE HCL 0.5% 300 DROP/15 ML BOTTLE OP (08:55)
[2024-06-30] MEDS: LIDOCAINE 2% JELLY 10 ML TOPICAL (08:55)
[2024-06-30] MEDS: BETADINE POVIDONE-IODINE 5% OP SOL 30 ML BOTTLE OP (08:55)
[2024-06-30 09:05] VITALS: BP 136/69; PULSE 56; O2SAT 99
[2024-06-30] MEDS: APRACLONIDINE HCL 0.5% SOL 100 DROP/5 ML BOTTLE OP (09:08)
[2024-06-30] MEDS: LIDOCAINE HCL 1% PF 20 MG/2 ML VIAL INJ (09:09)
[2024-06-30] MEDS: PHENYLEPHRINE/KETOROLAC 1-0.3% ML VIAL 4 ML IRR (09:09)
[2024-06-30] MEDS: HYALURONATE SODIUM 16 MG/ML SYRINGE OP (09:09)
[2024-06-30] MEDS: PREDNISOLONE ACETATE OP 1% SUSP 100 DROPS/5 ML 1 DROP OP (09:09)
[2024-06-30] MEDS: TETRACAINE HCL 0.5% OP SOL 80 DROP/4 ML BOTTLE OP (09:10)
[2024-06-30 09:11] VITALS: BP 146/65; PULSE 55; O2SAT 99
[2024-06-30] MEDS: CEFUROXIME SODIUM 750 MG, 0.9 % SODIUM CHLORIDE 16.3 ML OP (09:11)
== END 2024-06-30 09:33 | disposition home or self-care (01) ==
LOC: SURGOUT 06:41
PROVIDERS: PCP Family Medicine; Visit Provider Ophthalmology
PROC: (CPT 66991; principal; 2024-06-30 08:30)
DX: H25.11 Age-related nuclear cataract, right eye (principal); H40.1111 Primary open-angle glaucoma, right eye, mild stage
CPT/HCPCS: 66991; C1783; J0697; V2630